=== PATIENT | female | born 1935 | race Caucasian/White ===

== ENCOUNTER 2016-12-10 05:39 | Inpatient (IN) | payer OTHER ==
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
[2016-12-10] MEDS ORDERED: SODIUM CHLORIDE 0.9% 1000 ML INFUS.BAG IV ONE (06:07)
[2016-12-10] MEDS ORDERED: ASPIRIN 81 MG CHEWABLE TABLETS ONE (06:13)
[2016-12-10] MEDS ORDERED: ASPIRIN 81 MG CHEWABLE TABLETS PO ONE (06:17)
[2016-12-10 06:20] LABS: BASOPHIL 0.8 % (0-2.0); EOSINOPHIL 1.7 % (0-4.5); MCH 32.8 pg (25.7-33.7); MCHC 33.4 g/dl (32.0-36.0); MEAN CELL VOLUME 98.1 fl (80-96); MEAN PLT VOLUME 9.4 fl (7.5-11.1); NEUTROPHILS 46.6 % (42.8-82.8); PLATELET COUNT 306 K/MM3 (134-434); RDW 12.2 % (11.6-15.6); WHITE BLOOD COUNT 11.4 K/mm3 (4.0-10.0)
[2016-12-10 06:33] LABS: INR 1.04 (0.82-1.09); PROTHROMBIN TIME (PATIENT) 11.5 SEC (9.98-11.88)
[2016-12-10 06:55] LABS: ALBUMIN 3.4 g/dl (3.4-5.0); ANION GAP 11 (8-16); BILIRUBIN,TOTAL 0.2 mg/dL (0.2-1.0); CO2 25 mmol/L (21-32); CREATININE 1.3 mg/dL (0.55-1.02); GLUCOSE,RANDOM 78 mg/dL (74-106); SGOT/AST 13 U/L (15-37); SGPT/ALT 11 U/L (12-78); TOT PROT 7.7 g/dl (6.4-8.2)
[2016-12-10 06:56] LABS: ALK PHOS 73 U/L (45-117); TROPONIN I < 0.02 ng/ml (0.00-0.05)
--- NOTE | 2016-12-10 07:01 | PDOC ---
NIH Stroke Scale - Last Known Well Date/Time & Onset Date Last Known Well: 12/09/16 Time Last Known Well: 22:00 - Initial Evaluation Level of consciousness: Alert Ask patient the month and their age: Answers one correctly Ask patient to open & close eyes; make fist and let go: Obeys both correctly Best gaze (horizontal eye movement): Normal Visual field testing: No visual field loss Facial paresis (Show teeth/raise eyebrows/close eyes tight): Minor paralysis ( flattened nasolabial fold, asymmetry on smiling) Motor Function: Left Arm: Normal Motor Function: Right Arm: Normal (extends arm 90 (or 45) degrees for 10 seconds without drift Motor Function: Left Leg: Some effort against gravity Motor Function: Right Leg: Normal (extends leg 30 degrees for 5 seconds without drift) Limb Ataxia: No ataxia Sensory(Use pinprick test arms,legs,trunk,face/side to side): Normal Best language (Describe picture, name items, read sentences): No Aphasia Dysarthria (read several words): Mild to moderate slurring of words Extinction and Inattention: No abnormality - Total Score NIH Stroke Scale Score: 5
[2016-12-10] MEDS ORDERED: CEFTRIAXONE 500 MG in DEXTROSE 5%-WATER - 50 ML IVPB ONE (07:15)
[2016-12-10] MEDS ORDERED: AZITHROMYCIN IVPB 500 MG in DEXTROSE 5%-WATER - 250 ML IVPB ONE (07:15)
[2016-12-10 07:21] LABS: URINE APPEARANCE CLEAR; URINE BILIRUBIN NEGATIVE (NEGATIVE); URINE BLOOD NEGATIVE (NEGATIVE); URINE COLOR LTYELLOW; URINE GLUCOSE (UA) NEGATIVE (NEGATIVE); URINE KETONE NEGATIVE (NEGATIVE); URINE LEUK ESTERASE NEGATIVE (NEGATIVE); URINE NITRITE NEGATIVE (NEGATIVE); URINE PROTEIN NEGATIVE (NEGATIVE); URINE UROBILINOGEN NEGATIVE E.U./dl (0.2-1.0)
[2016-12-10] MEDS ORDERED: CEFTRIAXONE 1,000 MG in DEXTROSE 5%-WATER - 50 ML IVPB ONE (07:36)
[2016-12-10] MEDS ORDERED: AZITHROMYCIN IVPB 250 ML IVPB ONE (07:39)
[2016-12-10] MEDS ORDERED: CEFTRIAXONE 50 ML ONE (07:39)
[2016-12-10 08:11] LABS: SALICYLATE < 4.0 mg/dl (0.0-30.0)
[2016-12-10] MEDS ORDERED: ATORVASTATIN CA 40 MG TABLET (FP) PO ONE (10:20)
[2016-12-10] MEDS ORDERED: POTASSIUM CHLORIDE TABS 20 MEQ TABLET.ER (FP) PO SCH (10:30)
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
[2016-12-10] MEDS: SODIUM CHLORIDE 1,000 ML IV SCH (10:59)
--- NOTE | 2016-12-10 11:12 | EKG ---
Test Reason : Blood Pressure : / mmHG Vent. Rate : 081 BPM Atrial Rate : 081 BPM P-R Int : 154 ms QRS Dur : 136 ms QT Int : 444 ms P-R-T Axes : 066 -11 085 degrees QTc Int : 515 ms NORMAL SINUS RHYTHM LEFT BUNDLE BRANCH BLOCK ABNORMAL ECG WHEN COMPARED WITH ECG OF 22-JAN-2005 08:53, LEFT BUNDLE BRANCH BLOCK IS NOW PRESENT Confirmed by PAOLA BYNUM MD ([id number]) on 12/10/2016 11:11:32 AM Referred By: Confirmed By:PAOLA BYNUM MD
--- NOTE | 2016-12-10 11:13 | PN ---
Teaching Attending Note Name of Resident: Duane Henley ATTENDING PHYSICIAN STATEMENT I saw and evaluated the patient. I reviewed the resident's note and discussed the case with the resident. I agree with the resident's findings and plan as documented. SUBJECTIVE:81 year old female brought by family members due to altered mental status/confused state since 3 am . Last seen in normal state around 10 PM night before. She apparently woke up in the middle of the night , took ambien. As per family members at the time of exam she is back to her baseline mental status. Denies cough, fever or disuria. PMH CVA HTN Splenectomy Vertigo Insomnia Meds Benicar Meclizine Ambien Cough syrup OBJECTIVE: Vital Signs Temperature 97.3 F L 12/10/16 09:06 Pulse Rate 77 12/10/16 09:06 Respiratory Rate 20 12/10/16 09:06 Blood Pressure 103/64 12/10/16 09:06 O2 Sat by Pulse Oximetry (%) 99 12/10/16 08:38 GENERAL:Awake alert and oriented x 3 HEAD: No signs of trauma EYES: PERRLA, EOMI, sclera anicteric, conjunctiva clear ENT: Auricles normal inspection, hearing grossly normal, nares patent, oropharynx clear without exudates. Moist mucosa NECK: Normal ROM, supple, no lymphadenopathy, JVD, or masses LUNGS: Breath sounds equal, clear to auscultation bilaterally. No wheezes, and no crackles HEART: Regular rate and rhythm, normal S1 and S2, no murmurs, rubs or gallops ABDOMEN: Soft, nontender, normoactive bowel sounds. No guarding, no rebound. No masses EXTREMITIES: (+) Moving extremities symmetrically grossly, No edema. No clubbing or cyanosis. No cords, erythema, or tenderness NEUROLOGICAL: CN intact, Tongue protrudes midline, uvula elevates midline. Moves all extremities, sensory intact, gait deferred. Flattening of the right nasolabial fold . Gait is steady Abnormal Lab Results 12/10/16 12/10/16 12/10/16 05:45 05:48 05:48 WBC 11.4 H RBC 3.26 L Hct 32.0 L MCV 98.1 H Monocytes % 12.4 H Potassium 3.3 L BUN 28 H Creatinine 1.3 H Lactic Acid 2.633 H* Phosphorus 2.0 L AST 13 L ALT 11 L ASSESSMENT AND PLAN: 1. AMS - metabolic vs medication induced vs TIA. At baseline now. - telemetry monitoriing - r/o AFIB - hydrate - neurochecks q 4HR - ASA - Lipids - neurology evaluation called by ED, will follow recommendation . - hold BP meds for now 2. ARF - prerenal , likely due to dehydration - IVF 3. Elevated lactic acid - unlikely sepsis. No evidence of infection sourse. BP stable . There is a history of splenectomy and multiple transfusions prior to that . It is unclear if patient has history of hemolytic anemia or ITP? At risk for H flu amd S Pneumo however is asympthomatic . - check [facility] - will obtain records from [facility] Discussed with family and patient in extent
--- NOTE | 2016-12-10 11:17 | CONSULT ---
Consult - text type - Consultation Consultation Note: Neurology History of Present Illness 81-year-old female BIB family with a significant past medical history of HTN, and presents to the emergency department with altered mental status. Reportedly , the patient was last seen in a normal state of health before she went to bed at 10pm, but was noted to have woken up at 3:45 am when she start to sneeze excessively. The patient subsequently went to cook something, and burned sugar. She was confused as to where she was, moving more slowly than normal, and was not making sense with her speech. CT head without acute changes. She was admitted for further evaluation. Past History - Past Medical History HTN: Yes - Psycho/Social/Smoking Cessation Hx Anxiety: No Suicidal Ideation: No Smoking History: Never smoked Hx Alcohol Use: No Substance Use Type: None - Past Medical History Allergies/Adverse Reactions: Allergies Allergy/AdvReac Type Severity Reaction Status Date / Time No Known Allergies Allergy Verified 12/10/16 06:18 *Physical Exam - Vital Signs Last Vital Signs Temp Pulse Resp BP Pulse Ox 81 14 104/55 99 12/10/16 05:56 12/10/16 05:56 12/10/16 05:56 12/10/16 05:56 GENERAL: (+) Cachectic. (+) Awake, alert HEAD: No signs of trauma EYES: PERRLA, EOMI, sclera anicteric, conjunctiva clear ENT: Auricles normal inspection, hearing grossly normal, nares patent, oropharynx clear without exudates. Moist mucosa NECK: Normal ROM, supple, no lymphadenopathy, JVD, or masses LUNGS: Breath sounds equal, clear to auscultation bilaterally. No wheezes, and no crackles HEART: Regular rate and rhythm, normal S1 and S2, no murmurs, rubs or gallops ABDOMEN: Soft, nontender, normoactive bowel sounds. No guarding, no rebound. No masses EXTREMITIES: (+) Moving extremities symmetrically grossly but unable to hold left leg up against gravity. No edema. No clubbing or cyanosis. No cords, erythema, or tenderness NEUROLOGICAL: CN intact, ? R facial. (+) Tongue protrudes midline, uvula elevates midline. Moves all extremities, sensory intact, gait deferred 12/10/16 05:48 RBC 3.26 L MCV 98.1 H MCHC 33.4 RDW 12.2 MPV 9.4 Neutrophils % 46.6 Lymphocytes % 38.5 Monocytes % 12.4 H Eosinophils % 1.7 Basophils % 0.8 Plan: 81-year-old female BIB family with a significant past medical history of HTN, and presents to the emergency department with altered mental status. Reportedly , the patient was last seen in a normal state of health before she went to bed at 10pm, but was noted to have woken up at 3:45 am when she start to sneeze excessively. The patient subsequently went to cook something, and burned sugar. She was confused as to where she was, moving more slowly than normal. Would recommend MRI brain to rule acute changes More likely toxic/metabolic, possibly related to Ambien Would check for underlying infectious causes Increased hydration
[2016-12-10 11:48] LABS: CHOLESTEROL 164 mg/dL (50-200)
[2016-12-10 11:50] LABS: LDL CHOLESTEROL (ONLY SJRH) 82 mg/dL (5-100)
[2016-12-10 12:06] VITALS: BMI 21.8
[2016-12-10] MEDS: POTASSIUM CHLORIDE 40 MEQ/30 ML UNIT DOSE CUP PO SCH ×2 (12:19→22:48)
[2016-12-10] MEDS: NAPH,MB-DB/K PH,MBDB POWDER PACKET PO SCH ×2 (12:22→22:48)
[2016-12-10] MEDS: HEPARIN NA (PORCINE) 5,000 UNITS/ML 1ML VIAL SQ SCH (18:06)
[2016-12-11] MEDS: HEPARIN NA (PORCINE) 5,000 UNITS/ML 1ML VIAL SQ SCH ×3 (02:31→18:25)
[2016-12-11 07:45] LABS: MCH 33.1 pg (25.7-33.7); MCHC 33.4 g/dl (32.0-36.0); MEAN CELL VOLUME 99.1 fl (80-96); MEAN PLT VOLUME 10.5 fl (7.5-11.1); PLATELET COUNT 225 K/MM3 (134-434); RDW 12.3 % (11.6-15.6); WHITE BLOOD COUNT 8.8 K/mm3 (4.0-10.0)
[2016-12-11 08:11] LABS: CALCIUM 7.6 mg/dL (8.5-10.1); CREATININE 0.9 mg/dL (0.55-1.02); MAGNESIUM 1.7 mg/dL (1.8-2.4); PHOSPHOROUS 2.3 mg/dL (2.5-4.9)
[2016-12-11] MEDS: ASPIRIN 81 MG CHEWABLE TABLETS PO SCH (09:41)
[2016-12-11] MEDS: SODIUM CHLORIDE 1,000 ML IV SCH (12:00)
--- NOTE | 2016-12-11 12:00 | PN ---
Progress Note (short form) - Note Progress Note: Consult - text type - Consultation Consultation Note: Neurology History of Present Illness 81-year-old woman with history of hypertension, presented with altered mental status, and changes in speech. Patient reports being back to baseline with improvement in speech CT head no acute changes MRI brain complete showed evidence of acute left cerebral infarcts Carotid doppler- possible stenosis mid ICA bilaterally Past History - Past Medical History HTN: Yes - Psycho/Social/Smoking Cessation Hx Anxiety: No Suicidal Ideation: No Smoking History: Never smoked Hx Alcohol Use: No Substance Use Type: None - Past Medical History Allergies/Adverse Reactions: Allergies Allergy/AdvReac Type Severity Reaction Status Date / Time No Known Allergies Allergy Verified 12/10/16 06:18 *Physical Exam GENERAL: (+) Cachectic. (+) Awake, alert HEAD: No signs of trauma EYES: PERRLA, EOMI, sclera anicteric, conjunctiva clear ENT: Auricles normal inspection, hearing grossly normal, nares patent, oropharynx clear without exudates. Moist mucosa NECK: Normal ROM, supple, no lymphadenopathy, JVD, or masses LUNGS: Breath sounds equal, clear to auscultation bilaterally. No wheezes, and no crackles HEART: Regular rate and rhythm, normal S1 and S2, no murmurs, rubs or gallops ABDOMEN: Soft, nontender, normoactive bowel sounds. No guarding, no rebound. No masses EXTREMITIES: (+) Moving extremities symmetrically grossly. No edema. No clubbing or cyanosis. No cords, erythema, or tenderness NEUROLOGICAL: CN intact, ? R facial. (+) Tongue protrudes midline, uvula elevates midline. Moves all extremities, sensory intact, gait deferred Plan: 81-year-old woman with history of hypertension, presented with altered mental status, and changes in speech. Patient reports being back to baseline with improvement in speech. MRI confirms left cerebral hemispheric ischemic strokes Left cerebral ischemics infarcts NIHSS 0 CT head no acute changes Continue aspirin, continue statin MRI brain complete showed evidence of acute left cerebral infarcts Carotid doppler- possible stenosis mid ICA bilaterally Discussed with family at bedside results of MRI brain and carotid doppler. They would like to pursue further testing of ICA stenosis including MRA head and neck and possibly vascular surgery consult depending on results of MRA. Recommend MRA head and neck (ordered) Will follow MRA results
--- NOTE | 2016-12-11 14:52 | PN ---
Teaching Attending Note Name of Resident: Duane Henley ATTENDING PHYSICIAN STATEMENT I saw and evaluated the patient. I reviewed the resident's note and discussed the case with the resident. I agree with the resident's findings and plan as documented. Patient is comfortable with no acute distress, no nausea or vomiting, no chest pain, no shortness of breath. Back to her normal stage of mentation. Vital Signs Temperature 98.6 F 12/11/16 13:48 Pulse Rate 77 12/11/16 13:48 Respiratory Rate 20 12/11/16 13:48 Blood Pressure 98/65 12/11/16 13:48 O2 Sat by Pulse Oximetry (%) 97 12/11/16 02:17 CBCD WBC 8.8 K/mm3 (4.0-10.0) 12/11/16 05:35 RBC 2.85 M/mm3 (3.60-5.2) L 12/11/16 05:35 Hgb 9.4 GM/dL (10.7-15.3) L D 12/11/16 05:35 Hct 28.2 % (32.4-45.2) L 12/11/16 05:35 MCV 99.1 fl (80-96) H 12/11/16 05:35 MCHC 33.4 g/dl (32.0-36.0) 12/11/16 05:35 RDW 12.3 % (11.6-15.6) 12/11/16 05:35 Plt Count 225 K/MM3 (134-434) D 12/11/16 05:35 MPV 10.5 fl (7.5-11.1) D 12/11/16 05:35 CMP Sodium 139 mmol/L (136-145) 12/11/16 05:35 Potassium 4.7 mmol/L (3.5-5.1) D 12/11/16 05:35 Chloride 109 mmol/L (98-107) H 12/11/16 05:35 Carbon Dioxide 24 mmol/L (21-32) 12/11/16 05:35 Anion Gap 6 (8-16) L 12/11/16 05:35 BUN 16 mg/dL (7-18) D 12/11/16 05:35 Creatinine 0.9 mg/dL (0.55-1.02) D 12/11/16 05:35 Creat Clearance w eGFR 39.41 (>60) 12/10/16 05:48 Random Glucose 97 mg/dL (74-106) D 12/11/16 05:35 Calcium 7.6 mg/dL (8.5-10.1) L 12/11/16 05:35 Total Bilirubin 0.2 mg/dL (0.2-1.0) 12/10/16 05:48 AST 13 U/L (15-37) L 12/10/16 05:48 ALT 11 U/L (12-78) L 12/10/16 05:48 Alkaline Phosphatase 73 U/L (45-117) 12/10/16 05:48 Total Protein 7.7 g/dl (6.4-8.2) 12/10/16 05:48 Albumin 3.4 g/dl (3.4-5.0) 12/10/16 05:48 CARDIAC ENZYMES Creatine Kinase 52 IU/L (26-192) 12/10/16 05:48 Troponin I < 0.02 ng/ml (0.00-0.05) 12/10/16 05:48 Current Medications Generic Name Dose Route Start Last Admin Trade Name Freq PRN Reason Stop Dose Admin Aspirin 81 mg 12/11/16 10:00 12/11/16 09:41 Asa - PO 81 mg DAILY JULIA Administration Atorvastatin Calcium 40 mg 12/11/16 22:00 Lipitor - PO HS JULIA Heparin Sodium (Porcine) 5,000 unit 12/10/16 18:00 12/11/16 09:41 Heparin - SQ 5,000 unit Q8H-IV JULIA Administration Sodium Chloride 1,000 mls @ 75 mls/hr 12/10/16 10:30 12/11/16 12:00 Normal Saline - IV 75 mls/hr ASDIR JULIA Administration Home Medications Medication Instructions Recorded Cyclosporine [Restasis] 1 each OP DAILY 12/10/16 Estrogens,Conjugated [Premarin -] 0.625 mg PO DAILY 12/10/16 Fluticasone Prop 0.05% Nasal 1 - 2 spray NS DAILY 12/10/16 [Flonase -] Meclizine HCl 25 mg PO BID 12/10/16 Olmesartan/Hydrochlorothiazide 1 tab PO DAILY 12/10/16 [Benicar Hct 20-12.5MG Tab] Zolpidem Tartrate [Ambien] 10 mg PO DAILY 12/10/16 ASSESSMENT AND PLAN: 81F with HTN presents to the ED brought in by family for altered mental status. # Acute CVA: MRI: positive for a left cerebral infarct , continue telemetry monitoring ;Asa with 81mg daily. lipitor . check lipid panel , HbA1C, Carotid duplex noted-bilateral stenosis of ICA ;MRA brain and neck pending ,echo pending neuro consult appreciated and noted # Hx of HTN: controlled hold antihypertensives for now # vertigo: asymptomatic at this time; meclizine prn # insomnia: was on Ambien (became confused overnight) DVT Px: Heparin sq Low sodium diet
--- NOTE | 2016-12-11 15:28 | PN ---
Physical Exam: SUBJECTIVE: Patient seen and examined at bedside feels well today. feels much better in good spirits OBJECTIVE: Vital Signs Period Temp Pulse Resp BP Sys/Wright Pulse Ox Last 24 Hr 98.1 F-98.8 F 66-91 18-20 98-132/62-81 97 GENERAL: Awake, alert HEAD: Normal with no signs of trauma. EYES: Pupils equal, round and reactive to light, extraocular movements intacte EARS, NOSE, THROAT: dry mucous membranes. LUNGS: Breath sounds equal, clear to auscultation bilaterally. No wheezes, and no crackles. No accessory muscle use. HEART: Regular rate and rhythm, normal S1 and S2 without murmur, rub or gallop. ABDOMEN: Soft, nontender, not distended, normoactive bowel sounds, no guarding, no rebound, no masses. MUSCULOSKELETAL: Normal range of motion at all joints. No bony deformities or tenderness. No CVA tenderness. UPPER EXTREMITIES: No peripheral edema. LOWER EXTREMITIES: No peripheral edema. NEUROLOGICAL: Cranial nerves II-XII intact. Normal speech. . No facial asymmetry. uvula midline tongue thrust midline. PERRLA EOMI global muscle strength 5/5 and equal. toes down going bilaterally, knee jerk and biceps jerk 2+ bilaterally, able to hold extremities up against gravity >10 seconds. finger to nose WNL PSYCHIATRIC: Cooperative. Good eye contact. SKIN: Warm, dry, normal turgor. Laboratory Results - last 24 hr 12/11/16 12/11/16 05:35 05:35 WBC 8.8 RBC 2.85 L Hgb 9.4 L D Hct 28.2 L MCV 99.1 H MCHC 33.4 RDW 12.3 Plt Count 225 D MPV 10.5 D Sodium 139 Potassium 4.7 D Chloride 109 H Carbon Dioxide 24 Anion Gap 6 L BUN 16 D Creatinine 0.9 D Random Glucose 97 D Calcium 7.6 L Phosphorus 2.3 L Magnesium 1.7 L Active Medications Generic Name Dose Route Start Last Admin Trade Name Freq PRN Reason Stop Dose Admin Aspirin 81 mg 12/11/16 10:00 12/11/16 09:41 Asa - PO 81 mg DAILY JULIA Administration Atorvastatin Calcium 40 mg 12/11/16 22:00 Lipitor - PO HS JULIA Heparin Sodium (Porcine) 5,000 unit 12/10/16 18:00 12/11/16 09:41 Heparin - SQ 5,000 unit Q8H-IV JULIA Administration Sodium Chloride 1,000 mls @ 75 mls/hr 12/10/16 10:30 12/11/16 12:00 Normal Saline - IV 75 mls/hr ASDIR JULIA Administration ASSESSMENT/PLAN: 81F with HTN presents to the ED brought in by family for altered mental status. Altered mental status: CVA-patient had a left cerebral infarct on MRI Telemetry monitoring continue with 81mg daily continue lipitor lipid panel noted send HbA1C PT consult Carotid duplex noted-bilateral stenosis of ICA will do MRA brain and neck echo pending neuro consult appreciated and noted Patient has hyperlipidemia on labs: continue with statin acute kidney injury: likely secondary to dehydration and poor oral intake resolved with IVF light IVF hydration trend Cr Avoid nephrotoxic drugs Leukocytosis:resolved likely reactive patient is not septic and does not have evidence of an infectious process going on at this time CXR is clear UA is clear as well f/u cultures-no growth to date HTN: BP well controlled at this time hold antihypertensives for now vertigo: asymptomatic at this time hold meclizine insomnia: patient likely was sleep walking from ambien as this is a known side effect hold ambien FEN: stop IVF hypokalemia-resolved and hypophosphatemia-replete hypomagnesemia-replete Low sodium diet PPx: HSQ/SCDs no criteria met for GI PPx PT consult Visit type - Emergency Visit Emergency Visit: Yes ED Registration Date: 12/10/16 Care time: The patient presented to the Emergency Department on the above date and was hospitalized for further evaluation of their emergent condition. - New Patient This patient is new to me today: No - Critical Care Critical Care patient: No
[2016-12-11] MEDS ORDERED: MAGNESIUM SULF 50% (8.12 MEQ/2 ML-1 GM VIAL) IVPB ONE (16:00)
[2016-12-11] MEDS: NAPH,MB-DB/K PH,MBDB POWDER PACKET PO SCH ×2 (16:32→21:30)
[2016-12-11] MEDS ORDERED: ATORVASTATIN CA 40 MG TABLET (FP) PO SCH (22:00)
[2016-12-12] MEDS: HEPARIN NA (PORCINE) 5,000 UNITS/ML 1ML VIAL SQ SCH ×2 (01:50→09:53)
[2016-12-12] MEDS: ASPIRIN 81 MG CHEWABLE TABLETS PO SCH (09:53)
--- NOTE | 2016-12-12 11:15 | PN ---
Progress Note (short form) - Note Progress Note: Consult - text type - Consultation Consultation Note: Neurology History of Present Illness 81-year-old woman with history of hypertension, presented with altered mental status, and changes in speech. Patient reports being back to baseline with improvement in speech CT head no acute changes MRI brain complete showed evidence of acute left cerebral infarcts Carotid doppler- possible stenosis mid ICA bilaterally 12/12 No acute events overnight No recurrent symptoms MRA head and neck complete- shows distal L MCA Past History - Past Medical History HTN: Yes - Psycho/Social/Smoking Cessation Hx Anxiety: No Suicidal Ideation: No Smoking History: Never smoked Hx Alcohol Use: No Substance Use Type: None - Past Medical History Allergies/Adverse Reactions: Allergies Allergy/AdvReac Type Severity Reaction Status Date / Time No Known Allergies Allergy Verified 12/10/16 06:18 *Physical Exam GENERAL: (+) Cachectic. (+) Awake, alert HEAD: No signs of trauma EYES: PERRLA, EOMI, sclera anicteric, conjunctiva clear ENT: Auricles normal inspection, hearing grossly normal, nares patent, oropharynx clear without exudates. Moist mucosa NECK: Normal ROM, supple, no lymphadenopathy, JVD, or masses LUNGS: Breath sounds equal, clear to auscultation bilaterally. No wheezes, and no crackles HEART: Regular rate and rhythm, normal S1 and S2, no murmurs, rubs or gallops ABDOMEN: Soft, nontender, normoactive bowel sounds. No guarding, no rebound. No masses EXTREMITIES: (+) Moving extremities symmetrically grossly. No edema. No clubbing or cyanosis. No cords, erythema, or tenderness NEUROLOGICAL: CN intact, ? R facial. (+) Tongue protrudes midline, uvula elevates midline. Moves all extremities, sensory intact, gait deferred Plan: 81-year-old woman with history of hypertension, presented with altered mental status, and changes in speech. Patient reports being back to baseline with improvement in speech. MRI confirms left cerebral hemispheric ischemic strokes Left cerebral ischemic infarcts NIHSS 0 CT head no acute changes Continue aspirin and statin MRI brain complete showed evidence of acute left cerebral infarcts Carotid doppler- possible stenosis mid ICA bilaterally MRA head and neck shows distal L mca stenosis. Discussed results with son and at bedside. Provided option of vascular input for findings as inpatient , family would like to pursue opinion with endovascular as outpatient. Explained that given location of stenosis and age risks of intervention may outweigh benefit, however provided endovascular opinion as an option LDL 82, hga1c pending Provided patient with office number, follow up with outpatient neurology in 2 weeks
[2016-12-12 11:18] VITALS: BP 137/77; PULSE 85; TEMP 97.9
--- NOTE | 2016-12-12 13:04 | DS ---
Physical Exam: SUBJECTIVE: Patient seen and examined ay bedside no complaints feels well wants to go home OBJECTIVE: Vital Signs Period Temp Pulse Resp BP Sys/Wright Pulse Ox Last 24 Hr 97.8 F-98.8 F 69-85 17-20 98-137/65-77 96-96 PHYSICAL EXAM GENERAL: Awake, alert HEAD: Normal with no signs of trauma. EYES: Pupils equal, round and reactive to light, extraocular movements intacte EARS, NOSE, THROAT: dry mucous membranes. LUNGS: Breath sounds equal, clear to auscultation bilaterally. No wheezes, and no crackles. No accessory muscle use. HEART: Regular rate and rhythm, normal S1 and S2 without murmur, rub or gallop. ABDOMEN: Soft, nontender, not distended, normoactive bowel sounds, no guarding, no rebound, no masses. MUSCULOSKELETAL: Normal range of motion at all joints. No bony deformities or tenderness. No CVA tenderness. UPPER EXTREMITIES: No peripheral edema. LOWER EXTREMITIES: No peripheral edema. NEUROLOGICAL: Cranial nerves II-XII intact. Normal speech. . No facial asymmetry. uvula midline tongue thrust midline. PERRLA EOMI global muscle strength 5/5 and equal. toes down going bilaterally, knee jerk and biceps jerk 2+ bilaterally, able to hold extremities up against gravity >10 seconds. PSYCHIATRIC: Cooperative. Good eye contact. SKIN: Warm, dry, normal turgor. LABS Laboratory Results - last 24 hr 12/12/16 09:30 Lactic Acid 1.389 HOSPITAL COURSE: Date of Admission:12/10/16 Date of Discharge: 12/12/16 81F with history of HTN Insomnia vertigo presented to the ED with facial droop. She had a CT scan on admission which did not show acute pathology. admitted to telemetry and She was started on aspirin and statin. seen by neurologist. Patient also had elevated lactic acid and MAZIN which was likely secondary to dehydration as both resolved with light hydration. MRI done which showed left sided cerebellar strokes. Echo WNL. Carotid duplex showed bilateral stenosis of ICA. MRA neck did not show stenosis. MRA brain showed distal areas of stenosis where the strokes happened. offered to have a vascular consult and they would like to see one as outpatient. symptoms all resolved on the day of admission and she continues to be asymptomatic. stable for discharge. will follow up with neurology as outpatient and they will arrange for endovascular consult after speaking to Dr. Rutledge. diagnosed with hyperlipidemia on this admission started on statin as outpatient. Instructed to hold ambien for now until she sees her PMD. Minutes to complete discharge: 45 Discharge Summary Reason For Visit: COMMUNITY ACQUIRED PNEUMONIA, ALTERED MENTAL STATU Current Active Problems Acute CVA (cerebrovascular accident) (Acute) Acute kidney failure (Acute) Hyperlipidemia (Acute) Hypertension (Chronic) Insomnia (Chronic) Vertigo (Chronic) - Instructions Diet, Activity, Other Instructions: eat a low sodium low fat diet stop taking ambien until you see your primary care doctor follow up with neurology and they will arrange to see a endovascular specialist for your stroke if you would like to see one take your medications as prescribed if you have worsening of your symptoms or you experience similar symptoms again please go to the nearest emergency room Referrals: Teofilo Murry MD [Staff Physician] - 2 Weeks Jamshid Trevizo MD [Primary Care Provider] - 1 Week - Home Medications Comprehensive Discharge Medication List: Ambulatory Orders Cyclosporine [Restasis] 1 each OP DAILY 12/10/16 Estrogens,Conjugated [Premarin -] 0.625 mg PO DAILY 12/10/16 Fluticasone Prop 0.05% Nasal [Flonase -] 1 - 2 spray NS DAILY 12/10/16 Meclizine HCl 25 mg PO BID 12/10/16 Olmesartan/Hydrochlorothiazide [Benicar Hct 20-12.5MG Tab -] 1 tab PO DAILY Aspirin [ASA -] 81 mg PO DAILY #30 tab.chew 12/12/16 Atorvastatin Ca [Lipitor] 40 mg PO HS #30 tablet 12/12/16 This patient is new to me today: No Emergency Visit: No Critical Care patient: No - Discharge Referral Referred to [facility] Med P.C.: No
--- NOTE | 2016-12-12 13:33 | PN ---
Teaching Attending Note Name of Resident: Duane Henley ATTENDING PHYSICIAN STATEMENT I saw and evaluated the patient. I reviewed the resident's note and discussed the case with the resident. I agree with the resident's findings and plan as documented. SUBJECTIVE: no fever or ch ills, no weakness, numbness or tingling OBJECTIVE: NAD CV : RRR. LUngs : CTAB neuro : no facial droop, round equal pupils , EOMI, nl facial sensation , uvula at mid line strength 5/5 in upper and lower ext . sensation to light touch nl . reflexes 2+ knee jerk and biceps b/l . ASSESSMENT AND PLAN: 81 y/o lady with multiple medical problems who presented with R lower facial droop and AMS. she was found to have L cerebral acute infarcts . 1- L cerebral acute infarcts with MCA stenosis on MRA. 2- HLP . 3- H/o HTN plan : - cont ASa , statin , and BP control - to f/u with neuro and to be referred to interventional neurologist fro MCA stenosis evaluation - did well with PT dc home
== END 2016-12-12 13:24 | disposition home or self-care (01) | DRG 65 ==
LOC: JER 05:39 → JERBED 07:18 → INTOOBSV 07:18 → J4W 08:58 → OBSVTOIN 15:41
PROVIDERS: ADMIT Internal Medicine; ATTEND Internal Medicine
DX: I63.59 Cerebral infarction due to unspecified occlusion or stenosis of other cerebral artery (principal); N17.9 Acute kidney failure, unspecified; E87.2 Acidosis; E86.0 Dehydration; I10 Essential (primary) hypertension; G47.00 Insomnia, unspecified; R42 Dizziness and giddiness; E78.5 Hyperlipidemia, unspecified; R41.82 Altered mental status, unspecified; D72.829 Elevated white blood cell count, unspecified; R29.705 NIHSS score 5; E87.6 Hypokalemia; E83.39 Other disorders of phosphorus metabolism
CPT/HCPCS: 36415; 70450-TC; 70544-TC; 70547-TC; 70551-TC; 71010-TC; 80048; 80053; 80061; 80307; 81003; 82550; 83605; 83615; 83690; 83721; 83735; 83880; 84100; 84439; 84443; 84481; 84484; 85025; 85027; 85610; 86850; 86900; 86901; 87040; 87086; 93005; 93010; 93306-TC; 93880-TC; 97116-GP; 97161-GP; 99285-25; G0378; J1644

== ENCOUNTER 2018-06-03 09:39 | Inpatient (IN) | payer OTHER ==
[2018-05-31 09:37] VITALS: BMI 21.8
[2018-06-03] MEDS ORDERED: VASOPRESSIN 20 UNITS/ML VIAL IV ONE (10:16)
[2018-06-03] MEDS ORDERED: LIDOCAINE HCL/PF 2% SDV 5ML VIAL ONE (11:06)
[2018-06-03] MEDS ORDERED: PROPOFOL 20 ML ONE (11:06)
[2018-06-03] MEDS ORDERED: ceFAZolin SODIUM 1 GM VIAL ONE (11:06)
[2018-06-03] MEDS ORDERED: MIDAZOLAM HCL 2 MG/2 ML SINGLE DOSE VIAL ONE (11:06)
[2018-06-03] MEDS ORDERED: ceFAZolin SODIUM 1 GM VIAL IVPB ONE (11:30)
[2018-06-03] MEDS ORDERED: DEXAMETHASONE SOD PHOSPHATE 4 MG/1 ML VIAL ONE (11:44)
[2018-06-03] MEDS ORDERED: FLUORESCEIN SODIUM 10% 500 MG/5 ML VIAL IJ ONE (12:00)
[2018-06-03] MEDS ORDERED: KETOROLAC TROMETHAMINE 30 MG/1 ML VIAL ONE (12:04)
[2018-06-03] MEDS ORDERED: FUROSEMIDE 40 MG/4 ML INJECTABLE VIAL ONE (12:09)
[2018-06-03] MEDS ORDERED: BUPIVACAINE HCL/PF 0.25% (2.5MG/ML) 10 ML VIAL IJ ONE ×2 (12:41)
[2018-06-03] MEDS ORDERED: BUPIVACAINE HCL/PF 0.25% (2.5MG/ML) 10 ML VIAL ONE (12:43)
--- NOTE | 2018-06-03 13:01 | OP ---
Operative Note - Note: Operative Date: 06/03/18 Pre-Operative Diagnosis: gu prolapse Operation: colpectomy erterocele repair, incidental colotomy Implants: none Surgeon: Devin Thompson Career Education Teacher: Rico Guillory Anesthesia: General Specimens Removed: vaginal wall Estimated Blood Loss (mls): 100 Drains & Tubes with Location: dozier Operative Report Dictated: Yes
[2018-06-03] MEDS ORDERED: ONDANSETRON 4 MG/2 ML VIAL IVPUSH PRN (13:04)
[2018-06-03] MEDS ORDERED: LOSARTAN POTASSIUM 25 MG TABLET PO ONE (13:12)
--- NOTE | 2018-06-03 13:46 | CON.CARD ---
Consult Consult Specialty:: Cardiology Referred by:: Anesthesia Reason for Consultation:: Alternating LBBB - History of Present Illness Chief Complaint: Intra-op arrhythmia History of Present Illness: 83 yo WF h/o HTN/HCVD, hyperlipidemia, COPD with h/o pelvic floor instability underwent colpectomy enterocele repair, incidental colostomy noted to have alternating LBBB on intra-op telemetry monitoring. Patient denies chest pain, dyspnea, near or true syncope, palpitations, orthopnea, PND or LE edema. - History Source History Provided By: Patient Limitations to Obtaining History: No Limitations - Past Medical History ...: No - Alcohol/Substance Use Hx Alcohol Use: No - Smoking History Smoking history: Never smoked Have you smoked in the past 12 months: No Home Medications - Allergies Allergies/Adverse Reactions: Allergies Allergy/AdvReac Type Severity Reaction Status Date / Time No Known Allergies Allergy Verified 05/31/18 09:38 - Home Medications Home Medications: Ambulatory Orders Estrogens,Conjugated [Premarin -] 0.625 mg PO DAILY 12/10/16 Fluticasone Prop 0.05% Nasal [Flonase -] 1 - 2 spray NS DAILY 12/10/16 Aspirin [ASA -] 81 mg PO DAILY #30 tab.chew 12/12/16 Atorvastatin Ca [Lipitor] 40 mg PO HS #30 tablet 12/12/16 Amlodipine Besylate [Norvasc -] 5 mg PO DAILY 05/31/18 Losartan Potassium 25 mg PO DAILY 05/31/18 Refresh Classic Eye Drops 1 drop OU PRN PRN 05/31/18 Review of Systems - Review of Systems Cardiovascular: reports: No Symptoms Vital Signs: Vital Signs Temperature 97.9 F 06/03/18 10:34 Pulse Rate 80 06/03/18 10:34 Respiratory Rate 20 06/03/18 10:34 Blood Pressure 140/77 06/03/18 10:34 O2 Sat by Pulse Oximetry (%) 97 06/03/18 10:35 Constitutional: Yes: No Distress, Calm Neck: Yes: Supple Respiratory: Yes: Regular, Diminished, On Nasal O2 Gastrointestinal: Yes: Soft, Hypoactive Bowel Sounds Cardiovascular: Yes: Regular Rate and Rhythm JVD: No Carotid Bruit: No Heart Sounds: Yes: S1, S2 Murmur: Yes: Systolic Murmur, Grade 1 Edema: No - Other Data NSR @ 84 LAD, LBBB similar to previous seen December 10, 2016 Echo: Report Reviewed Ejection Fraction %: LVEF > or = 40 % Problem List - Problems (1) Left bundle branch block (LBBB) Code(s): I44.7 - LEFT BUNDLE-BRANCH BLOCK, UNSPECIFIED (2) Hyperlipidemia Code(s): E78.5 - HYPERLIPIDEMIA, UNSPECIFIED Qualifiers: Hyperlipidemia type: pure hypercholesterolemia Qualified Code(s): E78.00 - Pure hypercholesterolemia, unspecified; E78.0 - Pure hypercholesterolemia (3) Hypertension Code(s): I10 - ESSENTIAL (PRIMARY) HYPERTENSION Qualifiers: Hypertension type: essential hypertension Qualified Code(s): I10 - Essential (primary) hypertension Assessment/Plan December 11, 2016 Echo: Normal LV size and fxn, mod MR, TR, mild AR RVSP 30-40 mmHg 1. Alternating LBBB 2. prolapse s/p colpectomy erterocele repair, incidental colotomy 3. HTN/HCVD 4. Hyperlipidemia P:1. Telemetry monitoring for 24 hrs post-op 2. F/u echocardiogram 3. ASA 81 qd, losartan 25 qd, Lipitor 20 qd, Norvasc 5 qd 4. Thank you for consultative opportunity
--- NOTE | 2018-06-03 14:48 | EKG ---
Test Reason : Blood Pressure : / mmHG Vent. Rate : 084 BPM Atrial Rate : 084 BPM P-R Int : 162 ms QRS Dur : 124 ms QT Int : 450 ms P-R-T Axes : 067 -44 093 degrees QTc Int : 531 ms NORMAL SINUS RHYTHM LEFT AXIS DEVIATION LEFT BUNDLE BRANCH BLOCK ABNORMAL ECG WHEN COMPARED WITH ECG OF 10-DEC-2016 06:08, NO SIGNIFICANT CHANGE WAS FOUND Confirmed by KELLY HARRIS, MATY ([id number]) on 06/03/2018 2:47:42 PM Referred By: Devin Thompson Confirmed By:MATY MENDOZA MD
[2018-06-03] MEDS ORDERED: ACETAMINOPHEN 325 MG TABLET (FP) PO PRN (16:54)
--- NOTE | 2018-06-03 17:00 | ECHO ---
Name: CHRISTIANNE STONE Exam:Adult Echocardiogram Study Date: 06/03/2018 03:30 PM Age: 83 yrs Reason For Study: LVF Height: 59 in Weight: 108 lb BSA: 1.4 m2 MMode/2D Measurements & Calculations IVSd: 0.64 cm Ao root diam: 2.5 cm LVIDd: 3.7 cm LA dimension: 2.8 cm LVIDs: 2.5 cm LVPWd: 0.62 cm EDV(Teich): 58.4 ml RV S Chucky: 14.0 cm/sec ESV(Teich): 21.5 ml Doppler Measurements & Calculations Ao V2 max: 161.0 cm/sec AI max chucky: 423.5 cm/sec Ao max P.4 mmHg AI max P.7 mmHg Ao V2 mean: 112.0 cm/sec Ao mean P.7 mmHg AI dec slope: 338.0 cm/sec2 Ao V2 VTI: 31.2 cm AI P1/2t: 367.0 msec LV V1 max P.9 mmHg MR max chucky: 419.3 cm/sec LV V1 max: 110.6 cm/sec MR max P.3 mmHg TR max chucky: 271.9 cm/sec Med Peak E' Chucky: 5.0 cm/sec TR max P.6 mmHg Lat Peak E' Chucky: 4.0 cm/sec Procedure The study was technically difficult with many images being suboptimal in quality. Left Ventricle The left ventricular size, thickness and function are normal. The left ventricular ejection fraction is grossly normal. Right Ventricle The right ventricle is normal in size and function. Atria Normal left and right atrial size and function. Mitral Valve The mitral valve is grossly normal. There is trace to mild mitral regurgitation. Tricuspid Valve The tricuspid valve is normal. Aortic Valve The aortic valve is not well visualized. Trace aortic regurgitation. Pulmonic Valve The pulmonic valve is not well visualized. There is no pulmonic valvular regurgitation. Great Vessels The aortic root is normal size. Pericardium/Pleura There is no pericardial effusion. Interpretation Summary There is no comparison study available. The left ventricular size, thickness and function are normal The right ventricle is normal in size and function. Trace aortic regurgitation. There is trace to mild mitral regurgitation. Alessandro Scott MD 06/03/2018 04:17 PM
[2018-06-03] MEDS: LACTATED RINGERS SOLUTION 1,000 ML IV SCH (18:34)
[2018-06-03] MEDS: CEFAZOLIN 2 GM/D5W 2 GM/50 ML ML IVPB SCH (18:35)
[2018-06-03] MEDS: oxyCODONE HCL 5 MG TABLET PO PRN (18:58)
--- NOTE | 2018-06-03 20:24 | OP ---
DATE OF OPERATION: 06/03/2018 PREOPERATIVE DIAGNOSIS: Complete vaginal vault prolapse. POSTOPERATIVE DIAGNOSIS: Complete vaginal vault prolapse. Enterocele and incidental colotomy noted at the rectal area. PROCEDURE PERFORMED: Colpectomy, enterocele repair, perineoplasty, repair of colotomy site approximately 2 cm in length, and cystoscopy. PRIMARY SURGEON: Devin Thompson M.D. HAIR CUTTER: Rico Guillory M.D. DESCRIPTION OF PROCEDURE: After adequate anesthesia, patient was prepped and draped in dorsal lithotomy position. A dilute solution of pitressin was injected around the entire prolapsed vagina. The vaginal epithelium was excised, and enterocele sac was entered without any difficulty. Enterocele sac was excised, and enterocele sac was closed at its neck using 0 Vicryl in circumferential stitch. The remaining vaginal epithelium was excised to an appropriate level, and the underlying endopelvic fascia plicated 0 Vicryl in circumferential stitch in 3 layers. The vaginal epithelium was then closed using 2-0 Vicryl suture in continuous fashion. The superficial perineal muscle reapproximated using 0 Vicryl suture in interrupted fashion, thus reducing the size of the perineocele. Upon rectal examination, it was noted there was a stitch. The stitch was cut, but it was noted that a rectal defect was identified. The perineal plasty stitches were taken down approximately usp to the vagina. The defect found on the rectum was completely identified on all its edges, and the first layer with the in the rectum was closed using 2-0 Vicryl suture on an SH and continuous fashion. A second imbricating layer same stitch was placed on the second layer, and a third deeper stitch using 2-0 PDS on a CT1 needle was then plicated on the third layer. A fourth layer closure incorporating the vaginal epithelium was done on a wide stitch to bury a fourth layer over the repair site along with the vaginal epithelium. The superficial perineal muscle reapproximated in midline again using 0 Vicryl suture in interrupted fashion, and closure was continued down to the perineal body. Rectal examination again was only positive for the suture line. There was no defect noted on either side, rectally or upon closure. The patient tolerated procedure well, transferred to recovery room in stable condition. Prior to transfer, we did do a cystoscopy after dilute solution of fluorescein was given intravenously, noted no foreign bodies in the bladder, and fluorescein emanating from both ureteral orifices. The patient did have some EKG changes during surgery. She will have a cardiology consultation and be transferred to telemetry as an inpatient. She will be followed up by cardiology. The Montoya catheter was inserted. The Montoya catheter is planned to be taken out tomorrow morning if she is able to urinate, and she will go home according to cardiology, if not she will stay until cardiology clears her. If she is unable to void, she will go home with a catheter on a leg band and I will take it out most likely in the next few days. DEVIN THOMPSON M.D. [id number]
[2018-06-03] MEDS ORDERED: ATORVASTATIN CA 40 MG TABLET (FP) PO SCH (22:00)
[2018-06-04] MEDS: CEFAZOLIN 2 GM/D5W 2 GM/50 ML ML IVPB SCH (01:44)
[2018-06-04] MEDS: oxyCODONE HCL 5 MG TABLET PO PRN ×2 (01:44→09:23)
[2018-06-04] MEDS ORDERED: PT OWN MED DRAWER 7, Y5N ONE (09:31)
--- NOTE | 2018-06-04 09:50 | PN ---
Progress Note (short form) - Note Progress Note: Chief Complaint: Events noted, notes reviewed, denies any chest pain or dyspnea , complaining of incisional discomfort, intermittent CLBBB noted History of Present Illness: Seen and examined on telemetry. Events noted, notes reviewed, denies any chest pain or dyspnea, complaining of incisional discomfort, intermittent CLBBB noted Echocardiography 06/03/2018 revealed normal LV size and function, normal RV size and function, trace to mild MR and trace AI Medications: Current Medications Acetaminophen (Tylenol -) 325 mg PO Q4H PRN PRN Reason: PAIN LEVEL 6-10 Stop: 06/04/18 13:00 Last Admin: 06/04/18 01:44 Dose: 325 mg Amlodipine Besylate (Norvasc -) 5 mg PO DAILY [facility] Last Admin: 06/04/18 09:22 Dose: 5 mg Aspirin (Asa -) 81 mg PO DAILY [facility] Last Admin: 06/04/18 09:22 Dose: 81 mg Atorvastatin Calcium (Lipitor -) 40 mg PO HS [facility] Last Admin: 06/03/18 21:21 Dose: 40 mg Estrogens Conjugated (Premarin -) 0.625 mg PO DAILY [facility] Lactated Ringer's (Lactated Ringers Solution) 1,000 mls @ 125 mls/hr IV ASDIR [facility] Last Admin: 06/03/18 18:34 Dose: Not Given Ondansetron HCl (Zofran Injection) 4 mg IVPUSH Q6H PRN PRN Reason: NAUSEA AND/OR VOMITING Oxycodone HCl (Roxicodone -) 5 mg PO Q4H PRN PRN Reason: PAIN LEVEL 6-10 Last Admin: 06/04/18 09:23 Dose: 5 mg Review of Systems - Review of Systems Constitutional: denies: Chills or Fever Cardiovascular: as noted above Gastrointestinal: denies: Nausea, Vomiting, Diarrhea, Constipation reports: Incisional Discomfort Genitourinary: No symptoms reported Neurological: No symptoms reported Vital Signs: Last Vital Signs Temp Pulse Resp BP Pulse Ox 98.4 F 64 20 98/54 100 06/04/18 06:00 06/04/18 06:00 06/04/18 06:00 06/04/18 06:00 06/03/18 21:00 Intake & Output 06/01/18 06/02/18 06/03/18 06/04/18 23:59 23:59 23:59 23:59 Intake Total 1960 450 Output Total 1900 300 Balance 60 150 Neck: Supple Negative JVD No Bruit Respiratory: Clear to A&P Bilaterally Cardiovascular: S1 S2 Regular Rate Rhythm Gastrointestinal: Soft Benign Normal Bowel Sounds Ext: Negative Edema Bilaterally Labs: Assessment/Plan ASSESSMENT: 1. 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 prolapse post colpectomy erterocele repair, incidental colotomy 3. Probable diastolic LV dysfunction with clinical class 0 NYHA classification LV failure 4. HTN/hypertensive cardiovascular disease 5. Hyperlipidemia PLAN: 1. Continue Norvasc but decrease dosage 2. Add B-Blockers unless it is contraindicated 3. Continue Lipitor 4. Continue ASA 5. Further evaluation as outpatient including pharmacologic MPI study once fully ambulatory and recovered from current procedure Shivam Harden M.D.
[2018-06-04] MEDS ORDERED: ASPIRIN 81 MG CHEWABLE TABLETS PO SCH (10:00)
[2018-06-04] MEDS ORDERED: amLODIPine BESYLATE 5 MG TABLET (FP) PO SCH (10:00)
[2018-06-04] MEDS ORDERED: ESTROGENS,CONJUGATED 0.625 MG TABLET PO SCH (10:00)
--- NOTE | 2018-06-04 10:18 | PN ---
Progress Note (short form) - Note Progress Note: Anesthesia POD#1 S/P Anterior Posterior Repair/Colpectomy under GA Had arrythmia intra/op. Cardiology consult was called. Echo,NL LVF,Stable hemodynamically. No issues at this time. Further testing would be done later on. Jewell Pickett MD.
--- NOTE | 2018-06-04 14:46 | PATH ---
Surgical Pathology Report Patient Name: [facility]. Rec. #: [id number] /Age/Gender: 1935 (Age: 83) / F Account: [id number] Location: 4 W TELEMETRY U Taken: 06/03/2018 Received: 06/03/2018 Reported: 06/04/2018 Physicians: Devin Thompson M.D. Specimen(s) Received VAGINAL MUCOSA Clinical History Vaginal vault prolapse/enterocele Final Diagnosis VAGINAL MUCOSA, ENTEROCELE REPAIR, COLPECTOMY: VAGINAL SQUAMOUS MUCOSA WITHOUT SIGNIFICANT PATHOLOGIC FINDINGS. Electronically Signed Bina Galeano M.D. Gross Description Received in formalin labeled "vaginal mucosa," is an 8.7 x 8.0 x 1.5 cm aggregate of multiple nathan portions of soft tissue consistent with vaginal mucosa. Mental Health Counselor sections are submitted in one cassette. /06/03/2018 saudi/06/03/2018
[2018-06-04] MEDS: LACTATED RINGERS SOLUTION 1,000 ML IV SCH (14:51)
[2018-06-04 14:52] VITALS: BP 132/75; PULSE 99; TEMP 98.4
== END 2018-06-04 15:37 | disposition home or self-care (01) | DRG 746 ==
LOC: JSAMEDAYSX 09:39 → EDSTATUS 11:00 → J4W 17:36
PROVIDERS: ADMIT Obstetrics & Gynecology Female Pelvic Medicine and Reconstructive Surgery; ATTEND Obstetrics & Gynecology Female Pelvic Medicine and Reconstructive Surgery
PROC: 0DQP7ZZ Repair Rectum, Via Natural or Artificial Opening (ICD-10-PCS; 2018-06-03)
PROC: 0WQNXZZ Repair Female Perineum, External Approach (ICD-10-PCS; 2018-06-03)
PROC: 0UBG7ZZ Excision of Vagina, Via Natural or Artificial Opening (ICD-10-PCS; principal; 2018-06-03 11:00)
PROC: 0UQF7ZZ Repair Cul-de-sac, Via Natural or Artificial Opening (ICD-10-PCS; 2018-06-03 11:00)
DX: N81.3 Complete uterovaginal prolapse (principal); I50.30 Unspecified diastolic (congestive) heart failure; I44.7 Left bundle-branch block, unspecified; I11.0 Hypertensive heart disease with heart failure; J44.9 Chronic obstructive pulmonary disease, unspecified; E78.5 Hyperlipidemia, unspecified; N81.5 Vaginal enterocele
CPT/HCPCS: 36415; 82550; 84484; 88302-TC; 93005; 93010; 93306-TC; 94760; J1410

== ENCOUNTER 2019-03-17 13:57 | Inpatient (IN) | payer OTHER ==
--- NOTE | 2019-03-17 14:03 | PDOC ---
Rapid Medical Evaluation Time Seen by Provider: 03/17/19 14:00 Medical Evaluation: Allergies Allergy/AdvReac Type Severity Reaction Status Date / Time No Known Allergies Allergy Verified 05/31/18 09:38 03/17/19 14:00 I have performed a brief in-person evaluation of this patient. The patient presents with a chief complaint of: fall Pertinent physical exam findings: no focal deficits I have ordered the following: CT head and c-spine, labs, ekg The patient will proceed to the ED for further evaluation. 03/17/19 14:02 Discharge Disposition - Diagnosis Fall - Referrals - Patient Instructions - Post Discharge Activity
--- NOTE | 2019-03-17 15:14 | PDOC ---
Documentation entered by Jose Kirby SCRIBE, acting as scribe for Pina Kraus MD. Pina Kraus MD: This documentation has been prepared by the Kofi vernon Joel, SCRIBE, under my direction and personally reviewed by me in its entirety. I confirm that the documentation accurately reflects all work, treatment, procedures, and medical decision making performed by me. Attending Attestation - Resident Resident Name: Bryce Boyd - ED Attending Attestation I have performed the following: I have examined & evaluated the patient, The case was reviewed & discussed with the resident, I agree w/resident's findings & plan - HPI HPI: 03/17/19 15:23 The patient is an 83 year old male with a significant PMH of CVA, TIA, HTN, and hyperlipidemia who presents to the emergency department for evaluation of an unwitnessed fall this morning while getting up from bed, following suspected syncope. She is brought in by her sons who found her on the ground near the bedroom door. The patient states she is unable to recall falling or what happened before she fell. Allergies: NKA Social history: No reported cigarette, alcohol, or drug use. 03/17/19 16:54 - Physicial Exam PE: 03/17/19 15:20 Agree with the resident's HPI and PE as documented in the electronic medical record. NAD, well appearing, EOMI, PERRL, nl conjunctiva, anicteric; neck supple. lungs clear, RRR, abdomen soft nontender. Back nontender. CUMMINS x4, no focal neuro deficits. No peripheral edema. normal color for ethnicity, WWP. +ecchymosis to right lower lip and right lateral upper arm/deltoid. FROM in shoulder, elbow and wrist. 03/17/19 16:56 03/17/19 16:57 - Medical Decision Making 03/17/19 15:20 See HPI for details. Prior notes reviewed, including admissions, discharges and consultations. Vital signs reviewed, wnl. DDx. syncope: considered interval abnormalities including short QTC or long QT syndrome, WPW, conduction abnormality, Brugada, ACS, PE, electrolyte disturbances, metabolic derangement. seizure, SENIOR ACCOUNTING SPECIALIST lesion, CVA, ICH. UTI, infection. laboratory results and imaging reviewed, basic labs and lytes wnl, Cardiac panel_neg EKG LBBB, neg for sgarbossa's criteria. CT head and C spine neg for acute pathology, no bleed or fx. xray chest/hip unremarkable. ED course - no acute events. - admit for syncope workup, neuro genic/TIA/CVA vs cardiogenic, tele observation. 03/17/19 16:57 03/17/19 22:08 Heart Score/ECG Review #1 ECG reviewed & interpreted by me at: 14:35 General ECG Interpretation: Sinus Rhythm, Normal Rate Compared to previous ECG there are: No significant change 03/17/19 15:13 EKG normal sinus rhythm at 84 bpm, no interval abnormalities, wide QRS, ST and T wave segments and morphology normal. Nonspecific T wave abnormalities - appropriate discordance, no concordance changes
--- NOTE | 2019-03-17 15:20 | PDOC ---
History of Present Illness - General Chief Complaint: Syncope/Near Syncope Stated Complaint: FALL Time Seen by Provider: 03/17/19 14:00 - History of Present Illness Initial Comments: 03/17/19 15:49 The patient is an 83 year old female with a history of HTN, HLD, CVA who presents for evaluation following a fall and syncopal episode. The patient is accompanied by family who assists in providing the history. They report that the patient was getting out of bed when she experienced an unwitnessed fall earlier today. The patient cannot recall how or why she fell and was found by her family having crawled to the door unable to get up. She does not know if she had head trauma and otherwise denies headache, SOB, chest pain, palpitations , nausea, vomiting, abdominal pain, numbness, tingling, weakness, or changes with urination or bowel movements. Past History - Past Medical History Allergies/Adverse Reactions: Allergies Allergy/AdvReac Type Severity Reaction Status Date / Time No Known Allergies Allergy Verified 03/17/19 14:00 Home Medications: Ambulatory Orders Estrogens,Conjugated [Premarin -] 0.625 mg PO DAILY 12/10/16 Fluticasone Prop 0.05% Nasal [Flonase -] 1 - 2 spray NS DAILY 12/10/16 Aspirin [ASA -] 81 mg PO DAILY #30 tab.chew 12/12/16 Atorvastatin Ca [Lipitor] 40 mg PO HS #30 tablet 12/12/16 Amlodipine Besylate [Norvasc -] 5 mg PO DAILY 05/31/18 Losartan Potassium 25 mg PO DAILY 05/31/18 Refresh Classic Eye Drops 1 drop OU PRN PRN 05/31/18 Anemia: No Asthma: No (DENIES) Cancer: No Cardiac Disorders: No CVA: Yes (MINI STROKE 2016) COPD: No (DENIES) CHF: No Dementia: No Diabetes: No GI Disorders: No Disorders: No HTN: Yes Hypercholesterolemia: Yes Liver Disease: No Seizures: No Thyroid Disease: No - Surgical History Abdominal Surgery: Yes (SPLEENECTOMY 1994) Appendectomy: No Cardiac Surgery: No Cholecystectomy: No GI Surgery: Yes (splenectomy) Lung Surgery: No Neurologic Surgery: No Orthopedic Surgery: No - Immunization History Immunization Up to Date: Yes - Suicide/Smoking/Psychosocial Hx Smoking History: Never smoked Have you smoked in the past 12 months: No Hx Alcohol Use: No Drug/Substance Use Hx: No Substance Use Type: None Hx Substance Use Treatment: No Review of Systems - Review of Systems Comments:: 03/17/19 15:52 Constitutional: No fevers, chills, fatigue, malaise HEENT: No Rhinorrhea, nasal congestion, visual changes Cardiovascular: Syncope. No chest pain, palpitations, lightheadedness Respiratory: No Cough, SOB, Hemoptysis, Gastrointestinal: No Abdominal pain, Nausea, Vomiting, Constipation, Diarrhea, Melena Genitourinary: No Dysuria, Frequency, Urgency, Hesitancy, Hematuria, Flank pain Musculoskeletal: No Myalgia, arthralgia Skin: No rashes, itching, bruising, pallor Neurologic: No Headache, Dizziness, Numbness, Weakness, or Tingling Psychiatric: No Hallucinations. No SI or HI *Physical Exam - Vital Signs Last Vital Signs Temp Pulse Resp BP Pulse Ox 97.7 F 97 H 18 169/76 96 03/17/19 14:01 03/17/19 14:01 03/17/19 14:01 03/17/19 14:01 03/17/19 14:01 - Physical Exam Comments: 03/17/19 15:52 General Appearance: Nourished. No Apparent Distress HEENT: EOMI, ARIS. No Pharyngeal Erythema, Tonsillar Exudate, Tonsillar Erythema Neck: No Cervical Lymphadenopathy Respiratory/Chest: Lungs Clear, Normal Breath Sounds. No Crackles, Rales, Rhonchi, Wheezing Cardiovascular: Regular Rhythm, Regular Rate. No Murmur, Gallops, Rubs Gastrointestinal/Abdominal: Normal Bowel Sounds, Soft. 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 Heart Score/ECG Review #1 ECG reviewed & interpreted by me at: 15:52 03/17/19 15:52 HR 84 VA 158 QRS 122 QTc 519 Sinus Rhythm with PVCs Left [place] Deviation Left Bundle Branch Block No Acute ST Changes ED Treatment Course - LABORATORY CBC & Chemistry Diagram: 03/17/19 15:44 03/17/19 15:44 Medical Decision Making - Medical Decision Making 03/17/19 15:55 The patient is an 83 year old female with a history of HTN, HLD, CVA who presents for evaluation following a fall and syncopal episode. Differential includes but is not limited to: ACS, Cardiogenic Syncope, Neurogenic Syncope, Infectious, Metabolic Derangement. Given the patient's history and physical exam, we will obtain a cbc, cmp, troponin, coags, ua, ekg, head ct, cervical ct , chest plain film to evaluate further. The patient will likely require admission for further monitoring. We will continue to monitor and reassess while here in the ED. 03/17/19 18:45 CBC, cmp, troponin are unremarkable. Head CT and Cervical CT do not demonstrate any acute process as read by our radiologist. Chest plain film does not demonstrate any acute process as read by our radiologist. Given the patient's possible syncope, the patient will require admission for further monitoring. We discussed the case with the admitting team who accepted the patient for admission. *DC/Admit/Observation/Transfer Diagnosis at time of Disposition: Fall Qualifiers: Encounter type: initial encounter Qualified Code(s): W19.XXXA - Unspecified fall, initial encounter Syncope Qualifiers: Syncope type: unspecified Qualified Code(s): R55 - Syncope and collapse - Discharge Dispostion Condition at time of disposition: Stable Decision to Admit order: Yes - Referrals - Patient Instructions - Post Discharge Activity
[2019-03-17 15:59] LABS: BASO % 1.2 % (0-2.0); EOS % 0.5 % (0-4.5); HEMATOCRIT 37.5 % (32.4-45.2); HEMOGLOBIN 12.3 GM/dL (10.7-15.3); LYMPH % 14.2 % (8-40); MCH 32.3 pg (25.7-33.7); MCHC 32.9 g/dl (32.0-36.0); MEAN CELL VOLUME 98.3 fl (80-96); MEAN PLT VOLUME 10.2 fl (7.5-11.1); MONO % 7.5 % (3.8-10.2); NEUT % 76.6 % (42.8-82.8); PLATELET COUNT 284 K/MM3 (134-434); RBC 3.81 M/mm3 (3.60-5.2); RDW 12.3 % (11.6-15.6); WHITE BLOOD COUNT 13.7 K/mm3 (4.0-10.0)
[2019-03-17 16:26] LABS: INR 1.01 (0.83-1.09); PROTHROMBIN TIME (PATIENT) 11.9 SEC (9.7-13.0)
[2019-03-17 16:27] LABS: ALBUMIN 3.3 g/dl (3.4-5.0); ALK PHOS 74 U/L (45-117); ANION GAP 9 MMOL/L (8-16); BILIRUBIN,TOTAL 0.2 mg/dL (0.2-1); BLOOD UREA NITROGEN 15.5 mg/dL (7-18); CALCIUM 8.9 mg/dL (8.5-10.1); CHLORIDE 107 mmol/L (98-107); CO2 24 mmol/L (21-32); CREATININE 0.9 mg/dL (0.55-1.3); GLUCOSE,RANDOM 94 mg/dL (74-106); MAGNESIUM 2.2 mg/dL (1.8-2.4); POTASSIUM 4.4 mmol/L (3.5-5.1); SGOT/AST 19 U/L (15-37); SGPT/ALT 15 U/L (13-61); SODIUM 139 mmol/L (136-145); TOT PROT 7.5 g/dl (6.4-8.2)
[2019-03-17 19:53] LABS: EPI CELLS 5.5 /HPF (0-5/HPF); HYALINE CASTS 1 /lpf (0-8); URINE APPEARANCE CLEAR; URINE BACTERIA 102.6 /hpf (NEGATIVE); URINE BILIRUBIN NEGATIVE (NEGATIVE); URINE COLOR YELLOW; URINE GLUCOSE (UA) NEGATIVE (NEGATIVE); URINE KETONE NEGATIVE (NEGATIVE); URINE LEUK ESTERASE NEGATIVE (NEGATIVE); URINE NITRITE NEGATIVE (NEGATIVE); URINE PROTEIN 3+ (NEGATIVE); URINE RBC 2 /hpf (0-4); URINE UROBILINOGEN 0.2 mg/dL (0.2-1.0); URINE WBC 1 /hpf (0-5)
[2019-03-17] MEDS ORDERED: ACETAMINOPHEN 325 MG TABLET (FP) ONE (21:45)
[2019-03-17] MEDS: ACETAMINOPHEN 325 MG TABLET (FP) PO PRN (22:03)
[2019-03-18] MEDS ORDERED: ACETAMINOPHEN 325 MG TABLET (FP) ONE (03:23)
[2019-03-18] MEDS: ACETAMINOPHEN 325 MG TABLET (FP) PO PRN ×3 (03:41→20:03)
[2019-03-18 07:35] LABS: ALBUMIN 3.4 g/dl (3.4-5.0); BILIRUBIN,TOTAL 0.4 mg/dL (0.2-1); BLOOD UREA NITROGEN 13.8 mg/dL (7-18); CALCIUM 9.1 mg/dL (8.5-10.1); TOT PROT 7.7 g/dl (6.4-8.2)
[2019-03-18 07:42] LABS: EOS % 0.8 % (0-4.5); HEMATOCRIT 39.6 % (32.4-45.2); HEMOGLOBIN 13.2 GM/dL (10.7-15.3); LYMPH % 26.4 % (8-40); MCH 32.5 pg (25.7-33.7); MCHC 33.4 g/dl (32.0-36.0); MEAN CELL VOLUME 97.2 fl (80-96); MEAN PLT VOLUME 10.7 fl (7.5-11.1); MONO % 10.9 % (3.8-10.2); NEUT % 60.9 % (42.8-82.8); PLATELET COUNT 280 K/MM3 (134-434); RBC 4.07 M/mm3 (3.60-5.2); RDW 12.4 % (11.6-15.6); WHITE BLOOD COUNT 12.4 K/mm3 (4.0-10.0)
[2019-03-18] MEDS: HEPARIN NA (PORCINE) 5,000 UNITS/ML 1ML VIAL SQ SCH ×2 (09:53→22:25)
--- NOTE | 2019-03-18 10:35 | EKG ---
Test Reason : Blood Pressure : / mmHG Vent. Rate : 084 BPM Atrial Rate : 084 BPM P-R Int : 158 ms QRS Dur : 122 ms QT Int : 440 ms P-R-T Axes : 061 -39 078 degrees QTc Int : 519 ms SINUS RHYTHM WITH PREMATURE VENTRICULAR COMPLEXES OR FUSION COMPLEXES LEFT AXIS DEVIATION LEFT BUNDLE BRANCH BLOCK ABNORMAL ECG WHEN COMPARED WITH ECG OF 03-JUN-2018 13:14, FUSION COMPLEXES ARE NOW PRESENT PREMATURE VENTRICULAR COMPLEXES ARE NOW PRESENT Confirmed by Frank Newman MD ([id number]) on 03/18/2019 10:35:29 AM Referred By: Confirmed By:Frank Newman MD
--- NOTE | 2019-03-18 12:43 | CONSULT ---
Consult - text type - Consultation Consultation Note: NEUROLOGY CONSULT GREATLY APPRECIATED: This 83 yo RH woman lives with her . Pt. examined with her sons at the bedside. PMHX HTN, HLD and previous L cerebral CVA. Maintained on: premarin, fluticasone, ASA 81 mg, atorvastatin, amlodipine, losartan. Here after unwitnessed slip from bed early this morning. Denies prodromal symptoms, head trauma or LOC. Describes that her legs "gave out" and she laid on the floor calling for her to get her up and attempted to crawl for unknown amount of time. Head CT in ED (reviewed): Mod atrophy with mild ex vacuo ventricular dilation. Focal encephalomalacia L frontal lobe. BP= 169/77. Carotid duplex: Min atherosclerotic disease without hemodynamically sig stenosis CT of C spine: Mild disc bulge C5/C6. EKG- NSR WBC= 13.7 Urine WBC = 1 MRI of brain (reviewed and discussed with Dr. Campoverde. Moderate atrophy. Old, deep left frontal CVA with encephalomalacia and multiple deep, right frontal and parietal Small CVA's, most prominent on the DWI (acute). MR Angiogram is unremarkable JEREMI: Cor reg. No bruit. Neck supple. Ecchymosis to R lower lip and R hand. NEURO: Awake, alert, responsive. Ox "[facility]" "March." No year. No president. 09/26 recall @ 3min. + glabella, snout, grasp, R palmomental CNII-CNXII: L homonymous hemianopsia to threat. Mild L facial. Gag ok. Motor: L sided hemiparesis arm > legs with neglect. L leg rests everted. Reflexes brisk in arms and KJ's, reduced AJ's B/L. Toes silent. R cogwheeling Coordination: No R FTN dystaxia. Sensation: Reduced pinch on L side. Mislocalizes to R side. Gait: deferred Impression: Acute R cerebral dysfunction suggestive of new R parietal CVA Old L cerebral dysfunction (Old CVA) Underlying B/L Cerebral dysfunction (OMS likely present) Extrapyramidal findings on the right suggesting early PD Suggest: Telemetry to r/o arrythmia. R/O acute [place] and Cardiology consult. Review echocardiogram for possible cardioembolic source. Maintain systolic BP <130s. Continue ASA, statin and consider dual antiplatelet therapy. Check CPK Thank you very much, Bello Parks MD
--- NOTE | 2019-03-18 13:00 | ECHO ---
Name: CHRISTIANNE STONE Exam:Adult Echocardiogram Study Date: 03/18/2019 10:04 AM Age: 83 yrs Reason For Study: SYNCOPE Height: 59 in Weight: 120 lb BSA: 1.5 m2 MMode/2D Measurements & Calculations IVSd: 0.74 cm Ao root diam: 2.6 cm LVIDd: 3.0 cm LA dimension: 2.1 cm LVIDs: 2.2 cm LVPWd: 0.81 cm EDV(Teich): 35.8 ml LVOT diam: 2.0 cm ESV(Teich): 16.4 ml LAV (MOD-bp): 15.4 ml Doppler Measurements & Calculations MV E max chucky: 151.0 cm/sec Ao V2 max: 141.8 cm/sec MV dec time: 0.12 sec Ao max P.0 mmHg AI P1/2t: 310.3 msec MACRINA(V,D): 2.1 cm2 AI max chucky: 415.3 cm/sec LV V1 max P.9 mmHg AI max P.5 mmHg LV V1 max: 99.0 cm/sec AI dec slope: 392.0 cm/sec2 MR max chucky: 529.9 cm/sec PA V2 max: 142.5 cm/sec MR max P.5 mmHg PA max P.1 mmHg Med Peak E' Chucky: 12.0 cm/sec Med E/e': 12.6 Lat Peak E' Chucky: 27.8 cm/sec Lat E/e': 5.4 Procedure A complete two-dimensional transthoracic echocardiogram was performed (2D, M-mode, Doppler and color flow Doppler). Left Ventricle The left ventricular size, thickness and function are normal. Ejection Fraction = 55%. The transmitra l spectral Doppler flow pattern is suggestive of restrictive physiology. Septal motion is consistent wi th conduction abnormality. Right Ventricle The right ventricle is normal in size and function. Atria Normal left and right atrial size and function. Mitral Valve There is mild mitral valve thickening. There is mild mitral regurgitation. Tricuspid Valve The tricuspid valve is normal in structure and function. There is trace tricuspid regurgitation. Ther e was insufficient TR detected to calculate RV systolic pressure. Aortic Valve There is mild aortic valve thickening. Mild aortic regurgitation. Pulmonic Valve The pulmonic valve is not well visualized. Great Vessels The aortic root is not well visualized. Pericardium/Pleura There is no pericardial effusion. There is no pleural effusion. Interpretation Summary The left ventricular size, thickness and function are normal Septal motion is consistent with conduction abnormality. Ejection Fraction = 55%. The right ventricle is normal in size and function. There is mild mitral valve thickening. There is mild mitral regurgitation. There is trace tricuspid regurgitation. There is mild aortic valve thickening. Mild aortic regurgitation. MD Frank Newman 03/18/2019 01:00 PM
--- NOTE | 2019-03-18 15:25 | HP ---
Admitting History and Physical - Admission History of Present Illness: Pt is a 83 y/o female w/ PMH significant for htn, hld, copd, cva/tia, lbbb and presented tp ER s/p fall. Yesterday AM pt tried to get out of bed but leg was weak and she fell. No prodrome sxs, no loc. No sob cp palps dizzy pnd orthopnea le edema. She noticed left arm and leg are weak also. - Past Medical History Cardiovascular: Yes: HTN, Hyperlipdemia Pulmonary: Yes: COPD - Past Surgical History Past Surgical History: Yes: Colectomy - Smoking History Smoking history: Never smoked Have you smoked in the past 12 months: No - Alcohol/Substance Use Hx Alcohol Use: No Home Medications - Allergies Allergies/Adverse Reactions: Allergies Allergy/AdvReac Type Severity Reaction Status Date / Time No Known Allergies Allergy Verified 03/17/19 14:00 - Home Medications Home Medications: Ambulatory Orders Estrogens,Conjugated [Premarin -] 0.625 mg PO DAILY 12/10/16 Fluticasone Prop 0.05% Nasal [Flonase -] 1 - 2 spray NS DAILY 12/10/16 Aspirin [ASA -] 81 mg PO DAILY #30 tab.chew 12/12/16 Atorvastatin Ca [Lipitor] 40 mg PO HS #30 tablet 12/12/16 Amlodipine Besylate [Norvasc -] 5 mg PO DAILY 05/31/18 Losartan Potassium 25 mg PO DAILY 05/31/18 Refresh Classic Eye Drops 1 drop OU PRN PRN 05/31/18 Family Disease History - Family Disease History Family History: Unremarkable Review of Systems - Review of Systems Constitutional: reports: Weakness Neck: reports: No Symptoms Cardiovascular: reports: No Symptoms Respiratory: reports: No Symptoms Gastrointestinal: reports: No Symptoms Genitourinary: reports: No Symptoms Physical Examination Vital Signs: Vital Signs Temperature 97.6 F 03/18/19 10:55 Pulse Rate 90 03/18/19 14:12 Respiratory Rate 15 03/18/19 14:12 Blood Pressure 141/94 03/18/19 14:12 O2 Sat by Pulse Oximetry (%) 96 03/18/19 14:11 Eyes: Yes: WNL HENT: Yes: Other ((+) ecchymosis lower lip) Cardiovascular: Yes: WNL, Regular Rate and Rhythm Respiratory: Yes: WNL, Regular, CTA Bilaterally Gastrointestinal: Yes: WNL, Normal Bowel Sounds, Soft Edema: No Neurological: Yes: WNL, Alert, Oriented ...Motor Strength: LUE, LLE (decreased motor strength) Labs: CBC, BMP 03/18/19 06:50 03/18/19 06:44 Problem List - Problems (1) Syncope Assessment/Plan: ?Acute CVA Check MRI brain CT scan head did not show any acute pathology Check echo/carotid doppler Cont asa/statin Code(s): R55 - SYNCOPE AND COLLAPSE Qualifiers: Syncope type: unspecified Qualified Code(s): R55 - Syncope and collapse (2) Acute kidney failure Assessment/Plan: Cont IVF Renal US Code(s): N17.9 - ACUTE KIDNEY FAILURE, UNSPECIFIED (3) Hyperlipidemia Assessment/Plan: Cont statin Code(s): E78.5 - HYPERLIPIDEMIA, UNSPECIFIED Qualifiers: Hyperlipidemia type: pure hypercholesterolemia Qualified Code(s): E78.00 - Pure hypercholesterolemia, unspecified; E78.0 - Pure hypercholesterolemia (4) Left bundle branch block (LBBB) Code(s): I44.7 - LEFT BUNDLE-BRANCH BLOCK, UNSPECIFIED (5) Hypertension Code(s): I10 - ESSENTIAL (PRIMARY) HYPERTENSION Qualifiers: Hypertension type: essential hypertension Qualified Code(s): I10 - Essential (primary) hypertension
--- NOTE | 2019-03-18 16:35 | CON.CARD ---
Cardiology Consult (text) - Consultation Consultation Note: cc: fall hpi: 83 f hx htn, hld, copd, cva/tia, lbbb, here s/p fall. Yesterday AM pt tried to get out of bed but leg was weak and she fell. No prodrome sxs, no loc. No sob cp palps dizzy pnd orthopnea le edema. She noticed left arm and leg are weak also. Sees dr brown for cardio. pmh: per hpi psh: colectomy social: no tob fam: no premature cad ros: per hpi; all others normal meds: Current Medications Generic Name Dose Route Start Last Admin Trade Name Freq PRN Reason Stop Dose Admin Acetaminophen 650 mg 03/17/19 21:56 03/18/19 10:53 Tylenol - PO 650 mg Q6H PRN Administration PAIN Heparin Sodium (Porcine) 5,000 unit 03/18/19 10:00 03/18/19 09:53 Heparin - SQ 5,000 unit BID [facility] Administration Home Medications Medication Instructions Recorded Estrogens,Conjugated [Premarin -] 0.625 mg PO DAILY 12/10/16 Fluticasone Prop 0.05% Nasal 1 - 2 spray NS DAILY 12/10/16 [Flonase -] Aspirin [ASA -] 81 mg PO DAILY #30 tab.chew 12/12/16 Atorvastatin Ca [Lipitor] 40 mg PO HS #30 tablet 12/12/16 Amlodipine Besylate [Norvasc -] 5 mg PO DAILY 05/31/18 Losartan Potassium 25 mg PO DAILY 05/31/18 Refresh Classic Eye Drops 1 drop OU PRN PRN 05/31/18 pe: Vital Signs Period Temp Pulse Resp BP Sys/Wright Pulse Ox Last 24 Hr 97.6 F-98 F 84-112 15-18 141-164/78-96 96-99 nad no jvd rrr s1s2 no mrg cta bl nl eff aao3 no le e/c/c abd nt nd pos bs no jaundice diaphoresis pos dp pt no carotid bruits Laboratory Last Values WBC 12.4 K/mm3 (4.0-10.0) H 03/18/19 06:50 RBC 4.07 M/mm3 (3.60-5.2) 03/18/19 06:50 Hgb 13.2 GM/dL (10.7-15.3) 03/18/19 06:50 Hct 39.6 % (32.4-45.2) 03/18/19 06:50 MCV 97.2 fl (80-96) H 03/18/19 06:50 MCH 32.5 pg (25.7-33.7) 03/18/19 06:50 MCHC 33.4 g/dl (32.0-36.0) 03/18/19 06:50 RDW 12.4 % (11.6-15.6) 03/18/19 06:50 Plt Count 280 K/MM3 (134-434) 03/18/19 06:50 MPV 10.7 fl (7.5-11.1) 03/18/19 06:50 Absolute Neuts (auto) 7.6 K/mm3 (1.5-8.0) 03/18/19 06:50 Neutrophils % 60.9 % (42.8-82.8) D 03/18/19 06:50 Lymphocytes % 26.4 % (8-40) D 03/18/19 06:50 Monocytes % 10.9 % (3.8-10.2) H 03/18/19 06:50 Eosinophils % 0.8 % (0-4.5) 03/18/19 06:50 Basophils % 1.0 % (0-2.0) 03/18/19 06:50 Nucleated RBC % 0 % (0-0) 03/18/19 06:50 PT with INR 11.90 SEC (9.7-13.0) 03/17/19 15:44 INR 1.01 (0.83-1.09) 03/17/19 15:44 Sodium 138 mmol/L (136-145) 03/18/19 06:44 Potassium 4.0 mmol/L (3.5-5.1) 03/18/19 06:44 Chloride 106 mmol/L (98-107) 03/18/19 06:44 Carbon Dioxide 22 mmol/L (21-32) 03/18/19 06:44 Anion Gap 10 MMOL/L (8-16) 03/18/19 06:44 BUN 13.8 mg/dL (7-18) 03/18/19 06:44 Creatinine 1.0 mg/dL (0.55-1.3) 03/18/19 06:44 Est GFR (CKD-EPI)AfAm 60.76 03/18/19 06:44 Est GFR (CKD-EPI)NonAf 52.42 03/18/19 06:44 Random Glucose 109 mg/dL (74-106) H 03/18/19 06:44 Calcium 9.1 mg/dL (8.5-10.1) 03/18/19 06:44 Magnesium 2.2 mg/dL (1.8-2.4) 03/17/19 15:44 Total Bilirubin 0.4 mg/dL (0.2-1) 03/18/19 06:44 AST 19 U/L (15-37) 03/18/19 06:44 ALT 16 U/L (13-61) 03/18/19 06:44 Alkaline Phosphatase 80 U/L (45-117) 03/18/19 06:44 Creatine Kinase 106 U/L (26-192) 03/18/19 01:50 Troponin I < 0.02 ng/ml (0.00-0.05) 03/18/19 01:50 Total Protein 7.7 g/dl (6.4-8.2) 03/18/19 06:44 Albumin 3.4 g/dl (3.4-5.0) 03/18/19 06:44 Urine Color Yellow 03/17/19 16:45 Urine Appearance Clear 03/17/19 16:45 Urine pH 8.0 (5.0-8.0) D 03/17/19 16:45 Ur Specific [place] 1.014 (1.010-1.035) 03/17/19 16:45 Urine Protein 3+ (NEGATIVE) H 03/17/19 16:45 Urine Glucose (UA) Negative (NEGATIVE) 03/17/19 16:45 Urine Ketones Negative (NEGATIVE) 03/17/19 16:45 Urine Blood Negative (NEGATIVE) 03/17/19 16:45 Urine Nitrite Negative (NEGATIVE) 03/17/19 16:45 Urine Bilirubin Negative (NEGATIVE) 03/17/19 16:45 Urine Urobilinogen 0.2 mg/dL (0.2-1.0) 03/17/19 16:45 Ur Leukocyte Esterase Negative (NEGATIVE) 03/17/19 16:45 Urine WBC (Auto) 1 /hpf (0-5) 03/17/19 16:45 Urine RBC (Auto) 2 /hpf (0-4) 03/17/19 16:45 Urine Casts (Auto) 1 /lpf (0-8) 03/17/19 16:45 U Epithel Cells (Auto) 5.5 /HPF (0-5/HPF) 03/17/19 16:45 Urine Bacteria (Auto) 102.6 /hpf (NEGATIVE) 03/17/19 16:45 ecg: sr, old lbbb echo 02/2019: nl lv/rv, mild mr, mild ar carotids 02/2019: min dz, no sig stenosis cxr: clear lungs a/p: 83 f hx htn, hld, copd, cva/tia, lbbb, here s/p fall. fall: -no syncope per pt -echo, carotids benign here -no signs acs, or chf -cont tele, check ortho vitals -pt with left side weakness, neuro eval in progress htn: -cont home meds hld: -cont home statin abnl ecg, lbbb: -chronic lbbb -no signs acs -echo unremarkable here
[2019-03-18 17:13] VITALS: BMI 22.6
[2019-03-19 07:44] LABS: BILIRUBIN,TOTAL 0.6 mg/dL (0.2-1); BLOOD UREA NITROGEN 12.7 mg/dL (7-18); CALCIUM 8.5 mg/dL (8.5-10.1); CREATININE 0.9 mg/dL (0.55-1.3); POTASSIUM 3.9 mmol/L (3.5-5.1); TOT PROT 7.1 g/dl (6.4-8.2)
[2019-03-19 08:18] LABS: BASO % 0.5 % (0-2.0); EOS % 0.2 % (0-4.5); HEMATOCRIT 38.1 % (32.4-45.2); HEMOGLOBIN 12.7 GM/dL (10.7-15.3); LYMPH % 13.1 % (8-40); MCH 32.7 pg (25.7-33.7); MCHC 33.4 g/dl (32.0-36.0); MEAN CELL VOLUME 97.9 fl (80-96); MEAN PLT VOLUME 10.8 fl (7.5-11.1); MONO % 9.5 % (3.8-10.2); NEUT % 76.7 % (42.8-82.8); PLATELET COUNT 248 K/MM3 (134-434); RBC 3.89 M/mm3 (3.60-5.2); RDW 12.4 % (11.6-15.6); WHITE BLOOD COUNT 12.6 K/mm3 (4.0-10.0)
[2019-03-19] MEDS: HEPARIN NA (PORCINE) 5,000 UNITS/ML 1ML VIAL SQ SCH ×2 (10:16→21:25)
[2019-03-19] MEDS: DEXTROSE 5%-0.45% SALINE 1,000 ML IV SCH (10:16)
[2019-03-19] MEDS: ASPIRIN COATED 81 MG TABLET.EC PO SCH (10:16)
--- NOTE | 2019-03-19 11:35 | PN ---
Progress Note (short form) - Note Progress Note: s: no chest pain, palps, dizzy Current Medications Acetaminophen (Tylenol -) 650 mg PO Q6H PRN PRN Reason: PAIN Last Admin: 03/18/19 20:03 Dose: 650 mg Aspirin (Ecotrin -) 81 mg PO DAILY [facility] Last Admin: 03/19/19 10:16 Dose: 81 mg Atorvastatin Calcium (Lipitor -) 40 mg PO HS [facility] Heparin Sodium (Porcine) (Heparin -) 5,000 unit SQ BID [facility] Last Admin: 03/19/19 10:16 Dose: 5,000 unit Dextrose/Sodium Chloride (D5-1/2ns -) 1,000 mls @ 75 mls/hr IV ASDIR [facility] Last Admin: 03/19/19 10:16 Dose: Not Given Vital Signs Period Temp Pulse Resp BP Sys/Wright Pulse Ox Last 24 Hr 98.2 F-98.9 F 90-105 15-22 0-166/0-94 94-100 nad no jvd rrr s1s2 no mrg cta bl nl eff aao3 no le e/c/c abd nt nd pos bs no jaundice diaphoresis pos dp pt no carotid bruits ecg: sr, old lbbb echo 02/2019: nl lv/rv, mild mr, mild ar carotids 02/2019: min dz, no sig stenosis cxr: clear lungs tele sinus tach, PVCs a/p: 83 f hx htn, hld, copd, cva/tia, lbbb, here s/p fall. fall: -no syncope per pt -echo, carotids benign here -no signs acs, or chf -no arrhythmia on tele, check ortho vitals -pt with left side weakness, neuro eval in progress htn: -cont home meds hld: -cont home statin abnl ecg, lbbb: -chronic lbbb -no signs acs -echo unremarkable here
[2019-03-19] MEDS ORDERED: DEXTROSE 5%-WATER - 50 ML IVPB ONE (18:41)
[2019-03-19] MEDS ORDERED: cefTRIAXone SODIUM 1 GM VIAL ONE (18:41)
[2019-03-19] MEDS: CEFTRIAXONE 1 GM in DEXTROSE 5%-WATER - 50 ML IVPB SCH (18:45)
[2019-03-19] MEDS: ATORVASTATIN CA 40 MG TABLET (FP) PO SCH (21:26)
--- NOTE | 2019-03-19 21:30 | PN ---
Progress Note, Physician - Current Medication List Current Medications: Active Medications Acetaminophen (Tylenol -) 650 mg PO Q6H PRN PRN Reason: PAIN Last Admin: 03/18/19 20:03 Dose: 650 mg Aspirin (Ecotrin -) 81 mg PO DAILY [facility] Last Admin: 03/19/19 10:16 Dose: 81 mg Atorvastatin Calcium (Lipitor -) 40 mg PO HS [facility] Last Admin: 03/19/19 21:26 Dose: 40 mg Heparin Sodium (Porcine) (Heparin -) 5,000 unit SQ BID [facility] Last Admin: 03/19/19 21:25 Dose: 5,000 unit Dextrose/Sodium Chloride (D5-1/2ns -) 1,000 mls @ 75 mls/hr IV ASDIR [facility] Last Admin: 03/19/19 10:16 Dose: Not Given Ceftriaxone Sodium 1 gm/ (Dextrose) 50 mls @ 200 mls/hr IVPB DAILY [facility]; Protocol Last Admin: 03/19/19 18:45 Dose: 200 mls/hr - Objective Vital Signs: Vital Signs Temperature 98.8 F 03/19/19 20:03 Pulse Rate 90 03/19/19 20:03 Respiratory Rate 20 03/19/19 20:03 Blood Pressure 148/77 03/19/19 20:03 O2 Sat by Pulse Oximetry (%) 96 03/19/19 20:03 Labs: CBC, BMP 03/19/19 06:25 03/19/19 06:25 INR, PTT INR 1.01 (0.83-1.09) 03/17/19 15:44 Problem List - Problems (1) Syncope Code(s): R55 - SYNCOPE AND COLLAPSE Qualifiers: Syncope type: unspecified Qualified Code(s): R55 - Syncope and collapse (2) Acute kidney failure Code(s): N17.9 - ACUTE KIDNEY FAILURE, UNSPECIFIED (3) Hyperlipidemia Code(s): E78.5 - HYPERLIPIDEMIA, UNSPECIFIED Qualifiers: Hyperlipidemia type: pure hypercholesterolemia Qualified Code(s): E78.00 - Pure hypercholesterolemia, unspecified; E78.0 - Pure hypercholesterolemia (4) Left bundle branch block (LBBB) Code(s): I44.7 - LEFT BUNDLE-BRANCH BLOCK, UNSPECIFIED (5) Hypertension Code(s): I10 - ESSENTIAL (PRIMARY) HYPERTENSION Qualifiers: Hypertension type: essential hypertension Qualified Code(s): I10 - Essential (primary) hypertension
[2019-03-20] MEDS: DEXTROSE 5%-0.45% SALINE 1,000 ML IV SCH (03:27)
[2019-03-20] MEDS ORDERED: PT OWN MED DRAWER 7, Y5N ONE (07:52)
[2019-03-20] MEDS ORDERED: cefTRIAXone SODIUM 1 GM VIAL ONE (08:59)
[2019-03-20] MEDS ORDERED: DEXTROSE 5%-WATER - 50 ML IVPB ONE (09:00)
[2019-03-20] MEDS: CEFTRIAXONE 1 GM in DEXTROSE 5%-WATER - 50 ML IVPB SCH (09:12)
[2019-03-20] MEDS: HEPARIN NA (PORCINE) 5,000 UNITS/ML 1ML VIAL SQ SCH ×2 (09:13→21:45)
[2019-03-20] MEDS: ASPIRIN COATED 81 MG TABLET.EC PO SCH (09:13)
--- NOTE | 2019-03-20 11:30 | PN ---
Progress Note (short form) - Note Progress Note: s: no chest pain, palps, dizzy Current Medications Generic Name Dose Route Start Last Admin Trade Name Laloq PRN Reason Stop Dose Admin Acetaminophen 650 mg 03/17/19 21:56 03/18/19 20:03 Tylenol - PO 650 mg Q6H PRN Administration PAIN Aspirin 81 mg 03/19/19 10:00 03/20/19 09:13 Ecotrin - PO 81 mg DAILY JULIA Administration Atorvastatin Calcium 40 mg 03/19/19 22:00 03/19/19 21:26 Lipitor - PO 40 mg HS JULIA Administration Heparin Sodium (Porcine) 5,000 unit 03/18/19 10:00 03/20/19 09:13 Heparin - SQ 5,000 unit BID JULIA Administration Dextrose/Sodium Chloride 1,000 mls @ 75 mls/hr 03/19/19 02:30 03/20/19 03:27 D5-1/2ns - IV 75 mls/hr ASDIR [facility]UL[facility] Administration Ceftriaxone Sodium 1 gm/ 50 mls @ 200 mls/hr 03/19/19 17:30 03/20/19 09:12 Dextrose IVPB 200 mls/hr DAILY JULIA Administration Protocol Vital Signs Period Temp Pulse Resp BP Sys/Wright Pulse Ox Last 24 Hr 98.4 F-99.6 F 84-96 20-20 137-148/77-93 96-98 nad no jvd rrr s1s2 no mrg cta bl nl eff aao3 no le e/c/c abd nt nd pos bs no jaundice diaphoresis CBC, BMP 03/19/19 06:25 03/19/19 06:25 ecg: sr, old lbbb echo 02/2019: nl lv/rv, mild mr, mild ar carotids 02/2019: min dz, no sig stenosis cxr: clear lungs tele: sr a/p: 83 f hx htn, hld, copd, cva/tia, lbbb, here s/p fall. fall: -no syncope per pt -echo, carotids benign here -no signs acs, or chf -no arrhythmia on tele -pt with left side weakness, neuro eval in progress htn: -cont home meds hld: -cont home statin abnl ecg, lbbb: -chronic lbbb -no signs acs -echo unremarkable here
--- NOTE | 2019-03-20 11:59 | CON.ID ---
Consult Consult Specialty:: infectious diseases - Past Medical History Cardio/Vascular: Yes: HTN, Hyperlipdemia Pulmonary: Yes: COPD ...: No - Past Surgical History Past Surgical History: Yes: Colectomy - Alcohol/Substance Use Hx Alcohol Use: No - Smoking History Smoking history: Never smoked Have you smoked in the past 12 months: No Home Medications - Allergies Allergies/Adverse Reactions: Allergies Allergy/AdvReac Type Severity Reaction Status Date / Time No Known Allergies Allergy Verified 03/17/19 14:00 - Home Medications Home Medications: Ambulatory Orders Estrogens,Conjugated [Premarin -] 0.625 mg PO DAILY 12/10/16 Fluticasone Prop 0.05% Nasal [Flonase -] 1 - 2 spray NS DAILY 12/10/16 Aspirin [ASA -] 81 mg PO DAILY #30 tab.chew 12/12/16 Atorvastatin Ca [Lipitor] 40 mg PO HS #30 tablet 12/12/16 Amlodipine Besylate [Norvasc -] 5 mg PO DAILY 05/31/18 Losartan Potassium 25 mg PO DAILY 05/31/18 Refresh Classic Eye Drops 1 drop OU PRN PRN 05/31/18 Physical Exam Vital Signs: Vital Signs Temperature 98.8 F 03/20/19 06:00 Pulse Rate 84 03/20/19 06:00 Respiratory Rate 20 03/20/19 09:00 Blood Pressure 137/80 03/20/19 06:00 O2 Sat by Pulse Oximetry (%) 98 03/20/19 09:00 Labs: CBC, BMP 03/19/19 06:25 03/19/19 06:25
[2019-03-20] MEDS: ACETAMINOPHEN 325 MG TABLET (FP) PO PRN (16:44)
--- NOTE | 2019-03-20 20:13 | PN ---
Progress Note (short form) - Note Progress Note: NEUROLOGY PROGRESS: Events reviewed and discussed with staff. Cardiology consult appreciated. Son at bedside. Seen at patient's request for persistent complaints of L leg pain in the thigh. She describes them as "cramps" worse now that she's not moving. This is not relieved with tylenol. Her son confirms he also has nocturnal "back pains" and has to stretch to get moving. Being treated empirically for UTI with ceftriaxone. Xray of Hip/Pelvis done in ER suggestive of symmetric arthritic changes, but no acute pathology. OMS studies (TSH, RPR, B12 all normal/negative). NEURO: Awake, alert, responsive. Remembers I'm the doctor. 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 Tolerating soup without difficulty. Motor: L sided hemiparesis arm > legs with neglect. L leg rests everted. R cogwheeling Coordination: No R FTN dystaxia. Sensation: Reduced pinch on L side. Mislocalizes to R side. 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 OK to use low-dose SQ heparin with Clopidegrel, ASA (81). Try pramipexole 0.125 mg HS- can gradually increase in PM and make BID if necessary and tolerated. PT eval to Mobilize pt OOB to chair for meals Thank you very much, Bello Parks MD
[2019-03-20] MEDS: ATORVASTATIN CA 40 MG TABLET (FP) PO SCH (21:45)
[2019-03-20] MEDS ORDERED: PRAMIPEXOLE DIHYDROCHLORIDE 0.125 MG TABLET PO SCH (22:00)
--- NOTE | 2019-03-20 22:31 | PN ---
Progress Note, Physician - Current Medication List Current Medications: Active Medications Acetaminophen (Tylenol -) 650 mg PO Q6H PRN PRN Reason: PAIN Last Admin: 03/20/19 16:44 Dose: 650 mg Aspirin (Ecotrin -) 81 mg PO DAILY [facility] Last Admin: 03/20/19 09:13 Dose: 81 mg Atorvastatin Calcium (Lipitor -) 40 mg PO HS [facility] Last Admin: 03/20/19 21:45 Dose: 40 mg Heparin Sodium (Porcine) (Heparin -) 5,000 unit SQ BID [facility] Last Admin: 03/20/19 21:45 Dose: 5,000 unit Dextrose/Sodium Chloride (D5-1/2ns -) 1,000 mls @ 75 mls/hr IV ASDIR [facility] Last Admin: 03/20/19 03:27 Dose: 75 mls/hr Ceftriaxone Sodium 1 gm/ (Dextrose) 50 mls @ 200 mls/hr IVPB DAILY [facility]; Protocol Last Admin: 03/20/19 09:12 Dose: 200 mls/hr Pramipexole Dihydrochloride (Mirapex -) 0.125 mg PO HS [facility] Last Admin: 03/20/19 21:46 Dose: 0.125 mg - Objective Vital Signs: Vital Signs Temperature 98.8 F 03/20/19 20:12 Pulse Rate 84 03/20/19 20:12 Respiratory Rate 18 03/20/19 20:12 Blood Pressure 140/80 03/20/19 20:12 O2 Sat by Pulse Oximetry (%) 97 03/20/19 20:12 Labs: CBC, BMP 03/19/19 06:25 03/19/19 06:25 INR, PTT INR 1.01 (0.83-1.09) 03/17/19 15:44 Problem List - Problems (1) Syncope Code(s): R55 - SYNCOPE AND COLLAPSE Qualifiers: Syncope type: unspecified Qualified Code(s): R55 - Syncope and collapse (2) Acute kidney failure Code(s): N17.9 - ACUTE KIDNEY FAILURE, UNSPECIFIED (3) Hyperlipidemia Code(s): E78.5 - HYPERLIPIDEMIA, UNSPECIFIED Qualifiers: Hyperlipidemia type: pure hypercholesterolemia Qualified Code(s): E78.00 - Pure hypercholesterolemia, unspecified; E78.0 - Pure hypercholesterolemia (4) Left bundle branch block (LBBB) Code(s): I44.7 - LEFT BUNDLE-BRANCH BLOCK, UNSPECIFIED (5) Hypertension Code(s): I10 - ESSENTIAL (PRIMARY) HYPERTENSION Qualifiers: Hypertension type: essential hypertension Qualified Code(s): I10 - Essential (primary) hypertension
[2019-03-21] MEDS: ACETAMINOPHEN 325 MG TABLET (FP) PO PRN ×2 (02:00→08:22)
[2019-03-21] MEDS: DEXTROSE 5%-0.45% SALINE 1,000 ML IV SCH (03:00)
[2019-03-21] MEDS ORDERED: DEXTROSE 5%-WATER - 50 ML IVPB ONE (08:59)
[2019-03-21] MEDS ORDERED: cefTRIAXone SODIUM 1 GM VIAL ONE (08:59)
[2019-03-21] MEDS: HEPARIN NA (PORCINE) 5,000 UNITS/ML 1ML VIAL SQ SCH (09:12)
[2019-03-21] MEDS: ASPIRIN COATED 81 MG TABLET.EC PO SCH (09:12)
[2019-03-21] MEDS: CEFTRIAXONE 1 GM in DEXTROSE 5%-WATER - 50 ML IVPB SCH (09:13)
--- NOTE | 2019-03-21 09:29 | PN ---
Progress Note, Physician Chief Complaint: seen and examined on tele Denies CP Denies SOB TELE: NSR. History of Present Illness: MRI: Multiple infarcts - Current Medication List Current Medications: Active Medications Acetaminophen (Tylenol -) 650 mg PO Q6H PRN PRN Reason: PAIN Last Admin: 03/21/19 08:22 Dose: 650 mg Aspirin (Ecotrin -) 81 mg PO DAILY [facility] Last Admin: 03/21/19 09:12 Dose: 81 mg Atorvastatin Calcium (Lipitor -) 40 mg PO HS [facility] Last Admin: 03/20/19 21:45 Dose: 40 mg Heparin Sodium (Porcine) (Heparin -) 5,000 unit SQ BID [facility] Last Admin: 03/21/19 09:12 Dose: 5,000 unit Dextrose/Sodium Chloride (D5-1/2ns -) 1,000 mls @ 75 mls/hr IV ASDIR [facility] Last Admin: 03/21/19 03:00 Dose: 75 mls/hr Ceftriaxone Sodium 1 gm/ (Dextrose) 50 mls @ 200 mls/hr IVPB DAILY [facility]; Protocol Last Admin: 03/21/19 09:13 Dose: 200 mls/hr Pramipexole Dihydrochloride (Mirapex -) 0.125 mg PO HS [facility] Last Admin: 03/20/19 21:46 Dose: 0.125 mg - Objective Vital Signs: Vital Signs Temperature 98.5 F 03/21/19 06:00 Pulse Rate 90 03/21/19 06:00 Respiratory Rate 18 03/21/19 08:32 Blood Pressure 141/85 03/21/19 06:00 O2 Sat by Pulse Oximetry (%) 97 03/21/19 08:32 Constitutional: Yes: No Distress, Calm Cardiovascular: Yes: Regular Rate and Rhythm Respiratory: Yes: CTA Bilaterally Gastrointestinal: Yes: Soft (Nontender) Edema: No Neurological: Yes: Alert, Oriented Labs: CBC, BMP 03/19/19 06:25 03/19/19 06:25 INR, PTT INR 1.01 (0.83-1.09) 03/17/19 15:44 - ....Imaging EKG: Image Reviewed Assessment/Plan ecg: sr, old lbbb echo 02/2019: nl lv/rv, mild mr, mild ar carotids 02/2019: min dz, no sig stenosis cxr: clear lungs tele: sr A/P: 83 f hx htn, hld, copd, cva/tia, lbbb, here s/p fall, MRI with multiple infarcts. Fall: -no syncope per pt -echo, carotids benign here -no signs acs, or chf -no arrhythmia on tele -pt with left side weakness, neuro eval in progress HTN: -cont home meds HLD: -cont home statin abnl ecg, lbbb: -chronic lbbb -no signs acs -echo unremarkable here CVAs: om MRI -Cont ASA, statin. Tele with no evidence of PAF -Would benefit from extended outpatient rhythm monitoring to r/o occult AF
--- NOTE | 2019-03-21 09:52 | PN ---
Progress Note, Physician History of Present Illness: doing well still c/o of pain in the legs cx result noted - Current Medication List Current Medications: Active Medications Acetaminophen (Tylenol -) 650 mg PO Q6H PRN PRN Reason: PAIN Last Admin: 03/21/19 08:22 Dose: 650 mg Aspirin (Ecotrin -) 81 mg PO DAILY [facility] Last Admin: 03/21/19 09:12 Dose: 81 mg Atorvastatin Calcium (Lipitor -) 40 mg PO HS [facility] Last Admin: 03/20/19 21:45 Dose: 40 mg Heparin Sodium (Porcine) (Heparin -) 5,000 unit SQ BID [facility] Last Admin: 03/21/19 09:12 Dose: 5,000 unit Dextrose/Sodium Chloride (D5-1/2ns -) 1,000 mls @ 75 mls/hr IV ASDIR [facility] Last Admin: 03/21/19 03:00 Dose: 75 mls/hr Ceftriaxone Sodium 1 gm/ (Dextrose) 50 mls @ 200 mls/hr IVPB DAILY [facility]; Protocol Last Admin: 03/21/19 09:13 Dose: 200 mls/hr Pramipexole Dihydrochloride (Mirapex -) 0.125 mg PO HS [facility] Last Admin: 03/20/19 21:46 Dose: 0.125 mg - Objective Vital Signs: Vital Signs Temperature 98.5 F 03/21/19 06:00 Pulse Rate 90 03/21/19 06:00 Respiratory Rate 18 03/21/19 08:32 Blood Pressure 141/85 03/21/19 06:00 O2 Sat by Pulse Oximetry (%) 97 03/21/19 08:32 Constitutional: Yes: Calm, Mild Distress Cardiovascular: Yes: S1, S2 Respiratory: Yes: Regular, CTA Bilaterally Gastrointestinal: Yes: Normal Bowel Sounds, Soft Musculoskeletal: Yes: WNL Extremities: Yes: Other Neurological: Yes: Alert, Oriented Psychiatric: Yes: Alert, Oriented Labs: CBC, BMP 03/19/19 06:25 03/19/19 06:25 INR, PTT INR 1.01 (0.83-1.09) 03/17/19 15:44 Assessment/Plan Problem List - Problems (1) Syncope Code(s): R55 - SYNCOPE AND COLLAPSE Qualifiers: Syncope type: unspecified Qualified Code(s): R55 - Syncope and collapse (2) Acute kidney failure Code(s): N17.9 - ACUTE KIDNEY FAILURE, UNSPECIFIED (3) Hyperlipidemia Code(s): E78.5 - HYPERLIPIDEMIA, UNSPECIFIED Qualifiers: Hyperlipidemia type: pure hypercholesterolemia Qualified Code(s): E78.00 - Pure hypercholesterolemia, unspecified; E78.0 - Pure hypercholesterolemia (4) Left bundle branch block (LBBB) Code(s): I44.7 - LEFT BUNDLE-BRANCH BLOCK, UNSPECIFIED (5) Hypertension Code(s): I10 - ESSENTIAL (PRIMARY) HYPERTENSION Qualifiers: Hypertension type: essential hypertension Qualified Code(s): I10 - Essential (primary) hypertension plan continue current mgmt cx results noted will stop abx physio rest as per the team
[2019-03-21] MEDS ORDERED: ACETAMINOPHEN 325 MG TABLET (FP) PO PRN (14:10)
[2019-03-21 15:26] VITALS: BP 155/98; PULSE 113; TEMP 98.9
== END 2019-03-21 18:48 | DRG 65 ==
LOC: JER 13:57 → JERBED 17:15 → OBSVTOIN 21:55 → J4W 03-18 15:18
PROVIDERS: ADMIT Internal Medicine; ATTEND Internal Medicine
DX: I63.9 Cerebral infarction, unspecified (principal); G81.94 Hemiplegia, unspecified affecting left nondominant side; N17.9 Acute kidney failure, unspecified; J44.9 Chronic obstructive pulmonary disease, unspecified; I10 Essential (primary) hypertension; E78.5 Hyperlipidemia, unspecified; R55 Syncope and collapse; S60.221A Contusion of right hand, initial encounter; S00.531A Contusion of lip, initial encounter; R94.31 Abnormal electrocardiogram [ECG] [EKG]; G25.81 Restless legs syndrome; I44.7 Left bundle-branch block, unspecified; W18.39XA Other fall on same level, initial encounter; Y92.092 Bedroom in other non-institutional residence as the place of occurrence of the external cause; Z90.81 Acquired absence of spleen
CPT/HCPCS: 36415; 70450-TC; 70544-TC; 70551-TC; 71045-TC-FY; 72125-TC; 73523-TC-FY; 76775-TC; 80053; 81003; 82550; 82607; 83735; 84443; 84484; 85025; 85610; 86593; 87077; 87086; 93005; 93010; 93306-TC; 93880-TC; 97116-GP; 97162-GP; 99285-25; G0378; J1644